=== PATIENT | male | born 1960 | race Caucasian/White ===

== ENCOUNTER 2021-08-11 14:05 | Inpatient (IN) | payer MEDICARE, MEDICAID ==
[~2021-08-11] VITALS: Ht 172.7 cm; Wt 81.8 kg
[~2021-08-11 14:05] MED LIST: AMLO10TA4 PO; ATOR-2 PO; CARB200T PO; CLOP75TA15 PO; LISI10TA27 PO
[2021-08-11 15:42] LABS: APTT 26 SECONDS (22-32)
[2021-08-11 15:46] LABS: ALANINE AMINOTRANSFERASE 38 U/L (12-78); ALBUMIN 3.6 G/DL (3.4-5.0); ALBUMIN/GLOBULIN RATIO 1.1 (1.1-1.5); ANION GAP 4 (8-16); ASPARTATE AMINO TRANSFERASE 38 U/L (10-37); BILIRUBIN,TOTAL 0.5 MG/DL (0.1-1.0); BLOOD UREA NITROGEN 56 MG/DL (7-18); BUN/CREATININE RATIO 16.7 (5.4-32.0); CALCIUM 8.5 MG/DL (8.5-10.1); CHLORIDE 74 MMOL/L (99-107); CREATININE 3.36 MG/DL (0.60-1.10); GLUCOSE 155 MG/DL (70-104); TOTAL CARBON DIOXIDE 33.6 MMOL/L (24-32); eGFR 19 ML/MIN
[2021-08-11 15:55] LABS: POTASSIUM 2.9 MMOL/L (3.5-5.1); SODIUM 112 MMOL/L (135-145)
[2021-08-11] MEDS ORDERED: normal saline 1000ml 1,000 ML IV ONE (16:00)
--- NOTE | 2021-08-11 16:00 | NUR ---
pt ambulated with steady gait to/from restroom twice. urine sample provided, sent to lab.
[2021-08-11 16:07] LABS: BASOPHILS % (AUTO) 0.2 % (0-1); EOSINOPHILS % (AUTO) 0.1 % (0-6); HEMATOCRIT 37.7 % (42.0-52.0); LYMPHOCYTES # (AUTO) 0.6 X10'3 (1.1-4.8); LYMPHOCYTES % (AUTO) 5.1 % (21-51); MEAN CORPUSCULAR HEMOGLOBIN 30.9 PG (27.0-31.0); MEAN CORPUSCULAR HGB CONC 34.6 g/dL (33.0-36.5); MEAN CORPUSCULAR VOLUME 89.5 FL (78-98); MEAN PLATELET VOLUME 6.7 FL (7.4-10.4); MONOCYTES # (AUTO) 0.8 X10'3 (0-0.9); MONOCYTES % (AUTO) 6.5 % (2-12); NEUTROPHILS # (AUTO) 10.4 X10'3 (1.8-7.7); NEUTROPHILS % (AUTO) 88.1 % (42-75); RED BLOOD COUNT 4.21 X10'6 (4.70-6.10); RED CELL DISTRIBUTION WIDTH 13.1 % (11.5-14.5); WHITE BLOOD COUNT 11.8 X10'3 (4.5-11.0)
[2021-08-11] MEDS ORDERED: ATOR40TA72 PO (16:11)
[2021-08-11] MEDS ORDERED: LISI40TA13 PO (16:11)
[2021-08-11] MEDS ORDERED: HYDR12.55 PO (16:11)
[2021-08-11] MEDS ORDERED: FLO0.4C PO (16:11)
[2021-08-11] MEDS ORDERED: CLOP75TA34 PO (16:11)
[2021-08-11] MEDS ORDERED: AMLO10TA13 PO (16:11)
[2021-08-11] MEDS ORDERED: CARB-212 PO (16:11)
[2021-08-11] MEDS ORDERED: FLUT1BLS16 PO (16:11)
[2021-08-11] MEDS ORDERED: CARB200T40 PO (16:11)
[2021-08-11] MEDS ORDERED: CHLO25TA10 PO (16:11)
[2021-08-11] MEDS ORDERED: PRED10TA23 PO (16:23)
[2021-08-11] MEDS ORDERED: dextrose 50%-water 50ml dispensing syringe IV PRN (16:30)
[2021-08-11] MEDS ORDERED: ondansetron/PF 4mg/2ml inj IV PRN (16:30)
[2021-08-11] MEDS ORDERED: potassium CL 10mEq/100ml bag 100 ML IV PRN (16:30)
[2021-08-11] MEDS ORDERED: HYDROcodone/acetaminophen 5mg/325mg tablet PO PRN (16:30)
[2021-08-11] MEDS ORDERED: haloperidol 5mg tablet PO PRN (16:30)
[2021-08-11] MEDS ORDERED: magnesium 2GM in 50ml NS 50 ML IV PRN (16:30)
[2021-08-11] MEDS ORDERED: morphine 2 MG/ML inj. syringe IV PRN (16:30)
[2021-08-11] MEDS ORDERED: LORazepam 2 mg/ml vial IV PRN (16:30)
[2021-08-11] MEDS ORDERED: acetaminophen 325mg tablet PO PRN ×2 (16:30)
[2021-08-11] MEDS ORDERED: haloperidol lactate 5mg/ml inj IM PRN (16:30)
[2021-08-11] MEDS ORDERED: magnesium Cl slow-release 64mg tablet PO PRN (16:30)
[2021-08-11] MEDS ORDERED: magnesium 4gm in 100ml NS 100 ML IV PRN (16:30)
[2021-08-11] MEDS: normal saline 1000ml 1,000 ML IV SCH ×2 (16:30→23:47)
[2021-08-11 16:34] LABS: CLARITY,URINE CLEAR (Clear); COLOR,URINE YELLOW (Yellow); GLUCOSE, URINE 500 mg/dl (Neg); KETONES,URINE NEGATIVE (Neg); LEUKOCYTE ESTERASE ,URINE NEGATIVE (Neg); NITRITES, URINE NEGATIVE (Neg); OCCULT BLOOD,URINE SMALL (Neg); PROTEIN,URINE NEGATIVE (Neg); UROBILINOGEN,URINE 0.2 E.U/dL (0.2-1.0)
--- NOTE | 2021-08-11 16:37 | NUR ---
dr. alicia at bedside.
[2021-08-11] MEDS: thiamine 100mg tablet PO SCH (16:43)
[2021-08-11] MEDS: folic acid 1mg tablet PO SCH (16:44)
[2021-08-11 16:48] LABS: UA COLLECTION TYPE CLN CATCH MIDSTREAM
[2021-08-11 17:21] LABS: BACTERIA,URINE NONE SEEN /HPF (Neg); RBC,URINE 0-2 /HPF (0-2); SQUAMOUS EPITHELIAL CELL,UR FEW /LPF (FEW); WBC,URINE 0-4 /HPF (0-4)
[2021-08-11 17:22] LABS: AMORPHOUS URATES 1+; HYALINE CASTS 0-3 /LPF (NEGATIVE); TRANSITIONAL EPI CELLS,URINE FEW /HPF
--- NOTE | 2021-08-11 20:14 | NUR ---
WHILE I WAS IN ANOTHER PT'S ROOM, I SAW PT AMBULATING THE JAY WITH IV POLE. PT WALKED WITH AN ERECT AND COORDINATED GAIT TO BATHROOM AND WALKED BACK TO ROOM.
--- NOTE | 2021-08-11 20:29 | NUR ---
Received report from DECLAN Swan RN about patient going to [facility] [place].
[2021-08-11] MEDS: tamsulosin 0.4mg capsule PO SCH (20:38)
[2021-08-11] MEDS: heparin, porcine 5000 units/ml vial SQ SCH (20:39)
[2021-08-11] MEDS: K and/or MAG REPLACEMENT MC SCH (20:44)
[2021-08-11] MEDS: potassium Cl 20 mEq SR tablet PO PRN (20:45)
--- NOTE | 2021-08-11 21:20 | NUR ---
Patient arrived to unit via wheelchair, ambulate to bed, standby assist. No acute distress noted. Call light within reach. Patient is deaf. Dx: c/o neck pain, dizziness since Wednesday. Red rash noted on chest, trunk, arms. Denies any pain or discomfort. Safety measures and comfort maintained. Will continue to monitor.
[2021-08-11 22:00] VITALS: BP 121/65
--- NOTE | 2021-08-11 22:57 | NUR ---
Brando Mcqueen 7688I with bradycardia noted HR between 35-55 with pulse pause 3 secs duration. Now HR 55. Patient denied pain or discomfort. was paged.
--- NOTE | 2021-08-11 23:23 | NUR ---
Dr Mendes made aware, new order to continue to monitor closely at this time, since patient is asymptomatic. Patient in bed watching TV. Will continue to monitor.
[2021-08-12] MEDS: potassium Cl 20 mEq SR tablet PO PRN ×4 (01:26→21:28)
[2021-08-12] MEDS: normal saline 1000ml 1,000 ML IV SCH ×3 (01:27→19:17)
[2021-08-12 02:00] VITALS: BP 94/50
[2021-08-12 06:00] VITALS: BP 95/53
[2021-08-12 06:20] LABS: ALANINE AMINOTRANSFERASE 36 U/L (12-78); ALBUMIN 3.4 G/DL (3.4-5.0); ALBUMIN/GLOBULIN RATIO 1.2 (1.1-1.5); ANION GAP 5 (8-16); ASPARTATE AMINO TRANSFERASE 36 U/L (10-37); BILIRUBIN,TOTAL 0.4 MG/DL (0.1-1.0); BLOOD UREA NITROGEN 46 MG/DL (7-18); BUN/CREATININE RATIO 24.5 (5.4-32.0); CALCIUM 8.8 MG/DL (8.5-10.1); CHLORIDE 83 MMOL/L (99-107); CREATININE 1.88 MG/DL (0.60-1.10); GLUCOSE 98 MG/DL (70-104); POTASSIUM 3.4 MMOL/L (3.5-5.1); SODIUM 121 MMOL/L (135-145); TOTAL CARBON DIOXIDE 33.1 MMOL/L (24-32); TOTAL PROTEIN 6.2 G/DL (6.4-8.2); eGFR 37 ML/MIN
--- NOTE | 2021-08-12 06:25 | NUR ---
Problems reprioritized. Patient report given, questions answered & plan of care reviewed with GUY Graves.
[2021-08-12 07:06] LABS: BASOPHILS % (AUTO) 0.4 % (0-1); EOSINOPHILS # (AUTO) 0.1 X10'3 (0-0.9); EOSINOPHILS % (AUTO) 0.6 % (0-6); HEMATOCRIT 36.5 % (42.0-52.0); HEMOGLOBIN 12.9 g/dl (14.0-17.9); LYMPHOCYTES # (AUTO) 1.5 X10'3 (1.1-4.8); LYMPHOCYTES % (AUTO) 15.5 % (21-51); MEAN CORPUSCULAR HEMOGLOBIN 31.7 PG (27.0-31.0); MEAN CORPUSCULAR HGB CONC 35.3 g/dL (33.0-36.5); MEAN CORPUSCULAR VOLUME 89.8 FL (78-98); MEAN PLATELET VOLUME 6.6 FL (7.4-10.4); MONOCYTES # (AUTO) 1.1 X10'3 (0-0.9); MONOCYTES % (AUTO) 11.7 % (2-12); NEUTROPHILS # (AUTO) 6.8 X10'3 (1.8-7.7); NEUTROPHILS % (AUTO) 71.8 % (42-75); PLATELET COUNT 338 X10'3 (140-440); RED BLOOD COUNT 4.07 X10'6 (4.70-6.10); WHITE BLOOD COUNT 9.5 X10'3 (4.5-11.0)
[2021-08-12] MEDS: folic acid 1mg tablet PO SCH (08:00)
[2021-08-12] MEDS ORDERED: non-formulary drug (Fluticasone/Umeclidin/Vilanter (Trelegy Ellipta 200-62.5-25) 1 PUFFS) PO SCH (08:00)
[2021-08-12] MEDS ORDERED: Fluticasone/Umeclidin/Vilanter (Trelegy Ellipta 200-62.5-25) PO SCH (08:00)
[2021-08-12] MEDS: thiamine 100mg tablet PO SCH (08:00)
[2021-08-12] MEDS: amLODIPine 5mg tablet PO SCH (08:00)
[2021-08-12] MEDS: atorvastatin 20mg tablet PO SCH (09:43)
[2021-08-12] MEDS: clopidogrel 75mg tablet PO SCH (09:43)
[2021-08-12] MEDS: tamsulosin 0.4mg capsule PO SCH ×2 (09:46→19:41)
[2021-08-12] MEDS: heparin, porcine 5000 units/ml vial SQ SCH ×2 (09:46→19:41)
[2021-08-12 11:00] VITALS: BP 96/56
[2021-08-12 15:00] VITALS: BP 102/66
--- NOTE | 2021-08-12 18:35 | NUR ---
Problems reprioritized. Patient report given, questions answered & plan of care reviewed with Maryann/RN.
--- NOTE | 2021-08-12 18:36 | NUR ---
Patient in room PCU 3024. I have received report from GUY Graves and had the opportunity to ask questions and assume patient care.
[2021-08-12 19:00] VITALS: BP 100/65
[2021-08-12] MEDS: K and/or MAG REPLACEMENT MC SCH (20:00)
[2021-08-12 23:00] VITALS: BP 124/86
[2021-08-13] MEDS: normal saline 1000ml 1,000 ML IV SCH ×3 (01:57→08:07)
[2021-08-13 03:00] VITALS: BP 100/65
[2021-08-13 06:00] VITALS: BP 116/61
--- NOTE | 2021-08-13 06:26 | NUR ---
Problems reprioritized. Patient report given, questions answered & plan of care reviewed with GUY Bray.
[2021-08-13 06:38] LABS: BASOPHILS % (AUTO) 0.4 % (0-1); EOSINOPHILS # (AUTO) 0.1 X10'3 (0-0.9); EOSINOPHILS % (AUTO) 1.1 % (0-6); HEMATOCRIT 37.3 % (42.0-52.0); HEMOGLOBIN 12.9 g/dl (14.0-17.9); LYMPHOCYTES # (AUTO) 1.4 X10'3 (1.1-4.8); LYMPHOCYTES % (AUTO) 19.7 % (21-51); MEAN CORPUSCULAR HEMOGLOBIN 31.5 PG (27.0-31.0); MEAN CORPUSCULAR HGB CONC 34.6 g/dL (33.0-36.5); MEAN PLATELET VOLUME 6.6 FL (7.4-10.4); MONOCYTES % (AUTO) 13.4 % (2-12); NEUTROPHILS # (AUTO) 4.7 X10'3 (1.8-7.7); NEUTROPHILS % (AUTO) 65.4 % (42-75); PLATELET COUNT 346 X10'3 (140-440); RED CELL DISTRIBUTION WIDTH 12.9 % (11.5-14.5); WHITE BLOOD COUNT 7.2 X10'3 (4.5-11.0)
--- NOTE | 2021-08-13 07:19 | NUR ---
Patient in room PCU 3024. I have received report from GUY Wolf and had the opportunity to ask questions and assume patient care.
[2021-08-13 07:40] LABS: ALANINE AMINOTRANSFERASE 36 U/L (12-78); ALBUMIN 3.4 G/DL (3.4-5.0); ALBUMIN/GLOBULIN RATIO 1.2 (1.1-1.5); ANION GAP 4 (8-16); ASPARTATE AMINO TRANSFERASE 30 U/L (10-37); BILIRUBIN,TOTAL 0.4 MG/DL (0.1-1.0); BLOOD UREA NITROGEN 24 MG/DL (7-18); BUN/CREATININE RATIO 27.3 (5.4-32.0); CALCIUM 8.8 MG/DL (8.5-10.1); CHLORIDE 92 MMOL/L (99-107); CREATININE 0.88 MG/DL (0.60-1.10); GLUCOSE 91 MG/DL (70-104); POTASSIUM 4.4 MMOL/L (3.5-5.1); SODIUM 130 MMOL/L (135-145); TOTAL CARBON DIOXIDE 33.7 MMOL/L (24-32); TOTAL PROTEIN 6.2 G/DL (6.4-8.2); eGFR 89 ML/MIN
[2021-08-13] MEDS: K and/or MAG REPLACEMENT MC SCH (08:00)
[2021-08-13] MEDS: atorvastatin 20mg tablet PO SCH (08:03)
[2021-08-13] MEDS: folic acid 1mg tablet PO SCH (08:03)
[2021-08-13] MEDS: clopidogrel 75mg tablet PO SCH (08:03)
[2021-08-13 08:04] VITALS: BP_SYST 116
[2021-08-13] MEDS: amLODIPine 5mg tablet PO SCH (08:04)
[2021-08-13] MEDS: tamsulosin 0.4mg capsule PO SCH (08:05)
[2021-08-13] MEDS: thiamine 100mg tablet PO SCH (08:05)
[2021-08-13] MEDS: heparin, porcine 5000 units/ml vial SQ SCH (08:06)
[2021-08-13] MEDS ORDERED: LORazepam 1 MG tablet PO PRN (16:30)
[2021-08-13] MEDS ORDERED: LORazepam 2 mg/ml vial IV PRN (16:30)
[2021-08-13] MEDS ORDERED: triamcinolone acetonide 0.5% cream 15gm TP SCH (20:00)
[2021-08-15] MEDS ORDERED: LORazepam 2 mg/ml vial IV PRN (16:30)
[2021-08-15] MEDS ORDERED: LORazepam 1 MG tablet PO PRN (16:30)
== END 2021-08-13 16:52 | disposition home or self-care (01) | DRG 640 ==
LOC: ER 14:05 → PCU 3S 16:35 → OBSVTOIN 16:35
PROVIDERS: ADMIT Internal Medicine; ATTEND Internal Medicine
DX: E87.1 Hypo-osmolality and hyponatremia (principal); N17.0 Acute kidney failure with tubular necrosis; F10.29 Alcohol dependence with unspecified alcohol-induced disorder; M54.2 Cervicalgia; L30.9 Dermatitis, unspecified; R21 Rash and other nonspecific skin eruption; E87.6 Hypokalemia; F17.200 Nicotine dependence, unspecified, uncomplicated; I10 Essential (primary) hypertension; I48.0 Paroxysmal atrial fibrillation; L98.9 Disorder of the skin and subcutaneous tissue, unspecified; Z79.02 Long term (current) use of antithrombotics/antiplatelets; Z79.899 Other long term (current) drug therapy; Z86.73 Personal history of transient ischemic attack (TIA), and cerebral infarction without residual deficits; Z88.8 Allergy status to other drugs, medicaments and biological substances
CPT/HCPCS: 36415; 70450; 71045; 80053; 81001; 85025; 85610; 85730; 86885; 86900; 86901; 87081; 93005; 96372; 99291; G0378; J1644; J7030

== ENCOUNTER 2021-08-21 12:50 | Emergency (ER) | payer MEDICARE, MEDICAID ==
[~2021-08-21] VITALS: Ht 172.7 cm; Wt 85.9 kg
[~2021-08-21 12:50] MED LIST changes: +AMLO10TA13 PO; -AMLO10TA4 PO; -ATOR-2 PO; +ATOR40TA72 PO; +CARB-212 PO; -CARB200T PO; +CARB200T40 PO; -CLOP75TA15 PO; +CLOP75TA34 PO; +FLO0.4C PO; +FLUT1BLS16 PO; -LISI10TA27 PO; +PRED10TA23 PO
[2021-08-21 13:15] VITALS: BP 132/69
[2021-08-21 14:29] LABS: BASOPHILS # (AUTO) 0.1 X10'3 (0-0.2); BASOPHILS % (AUTO) 0.6 % (0-1); EOSINOPHILS % (AUTO) 0.1 % (0-6); HEMATOCRIT 33.8 % (42.0-52.0); HEMOGLOBIN 11.3 g/dl (14.0-17.9); LYMPHOCYTES # (AUTO) 0.6 X10'3 (1.1-4.8); LYMPHOCYTES % (AUTO) 5.4 % (21-51); MEAN CORPUSCULAR HEMOGLOBIN 31.7 PG (27.0-31.0); MEAN CORPUSCULAR HGB CONC 33.5 g/dL (33.0-36.5); MEAN CORPUSCULAR VOLUME 94.6 FL (78-98); MONOCYTES # (AUTO) 0.8 X10'3 (0-0.9); MONOCYTES % (AUTO) 6.8 % (2-12); NEUTROPHILS # (AUTO) 10.4 X10'3 (1.8-7.7); NEUTROPHILS % (AUTO) 87.1 % (42-75); PLATELET COUNT 345 X10'3 (140-440); RED BLOOD COUNT 3.57 X10'6 (4.70-6.10); RED CELL DISTRIBUTION WIDTH 13.6 % (11.5-14.5)
[2021-08-21 14:35] LABS: ANION GAP 8 (8-16); BLOOD UREA NITROGEN 11 MG/DL (7-18); BUN/CREATININE RATIO 16.2 (5.4-32.0); CALCIUM 8.8 MG/DL (8.5-10.1); CHLORIDE 95 MMOL/L (99-107); CREATININE 0.68 MG/DL (0.60-1.10); GLUCOSE 109 MG/DL (70-104); POTASSIUM 4.9 MMOL/L (3.5-5.1); SODIUM 132 MMOL/L (135-145); TOTAL CARBON DIOXIDE 28.9 MMOL/L (24-32); eGFR > 90 ML/MIN
[2021-08-21 14:36] LABS: ALANINE AMINOTRANSFERASE 46 U/L (12-78); ALBUMIN 3.4 G/DL (3.4-5.0); ALBUMIN/GLOBULIN RATIO 1.2 (1.1-1.5); ALKALINE PHOSPHATASE 95 IU/L (46-116); ASPARTATE AMINO TRANSFERASE 19 U/L (10-37); BILIRUBIN,TOTAL 0.2 MG/DL (0.1-1.0); TOTAL PROTEIN 6.2 G/DL (6.4-8.2)
== END 2021-08-21 15:26 | disposition home or self-care (01) ==
LOC: ER 12:50
DX: R60.0 Localized edema (principal); E87.6 Hypokalemia; I10 Essential (primary) hypertension; Z86.73 Personal history of transient ischemic attack (TIA), and cerebral infarction without residual deficits; Z86.69 Personal history of other diseases of the nervous system and sense organs; Z98.890 Other specified postprocedural states; Z72.89 Other problems related to lifestyle; Z88.6 Allergy status to analgesic agent; Z79.899 Other long term (current) drug therapy
CPT/HCPCS: 36415; 80053; 83880; 85025; 99283

== ENCOUNTER 2022-08-24 15:50 | Inpatient (IN) | payer MEDICARE, MEDICAID ==
[~2022-08-24] VITALS: Ht 172.7 cm; Wt 86.7 kg
[~2022-08-24 15:50] MED LIST changes: -AMLO10TA13 PO; +APIX5TAB3 PO; +ASPI81TA53 PO; +CARV6.253 PO; +FOLI1TAB27 PO; +LOSA100T57 PO; +NALT50TA PO; +NITR0.4T51 SL; -PRED10TA23 PO; +thiamine tablet PO
[2022-08-24 16:14] LABS: BASOPHILS # (AUTO) 0.1 X10'3 (0-0.2); BASOPHILS % (AUTO) 1.1 % (0-1); EOSINOPHILS % (AUTO) 0.6 % (0-6); HEMATOCRIT 43.4 % (42.0-52.0); HEMOGLOBIN 14.5 g/dl (14.0-17.9); LYMPHOCYTES # (AUTO) 1.5 X10'3 (1.1-4.8); LYMPHOCYTES % (AUTO) 23.5 % (21-51); MEAN CORPUSCULAR HEMOGLOBIN 31.1 PG (27.0-31.0); MEAN CORPUSCULAR HGB CONC 33.3 g/dL (33.0-36.5); MEAN CORPUSCULAR VOLUME 93.2 FL (78-98); MEAN PLATELET VOLUME 6.3 FL (7.4-10.4); MONOCYTES # (AUTO) 0.7 X10'3 (0-0.9); MONOCYTES % (AUTO) 11.4 % (2-12); NEUTROPHILS % (AUTO) 63.4 % (42-75); PLATELET COUNT 288 X10'3 (140-440); RED BLOOD COUNT 4.65 X10'6 (4.70-6.10); RED CELL DISTRIBUTION WIDTH 13.9 % (11.5-14.5); WHITE BLOOD COUNT 6.3 X10'3 (4.5-11.0)
[2022-08-24 16:39] LABS: ALANINE AMINOTRANSFERASE 40 U/L (12-78); ALBUMIN 3.6 G/DL (3.4-5.0); ALBUMIN/GLOBULIN RATIO 1.1 (1.1-1.5); ALKALINE PHOSPHATASE 124 IU/L (46-116); ANION GAP 5 (8-16); ASPARTATE AMINO TRANSFERASE 28 U/L (10-37); BILIRUBIN,TOTAL 0.3 MG/DL (0.1-1.0); BLOOD UREA NITROGEN 24 MG/DL (7-18); CALCIUM 9.3 MG/DL (8.5-10.1); CHLORIDE 102 MMOL/L (99-107); GLUCOSE 91 MG/DL (70-104); POTASSIUM 4.3 MMOL/L (3.5-5.1); SODIUM 136 MMOL/L (135-145); TOTAL CARBON DIOXIDE 28.6 MMOL/L (24-32); eGFR > 90 ML/MIN
[2022-08-24] MEDS ORDERED: nitroGLYCERIN 0.4mg SUBLingual tab SL PRN (18:05)
[2022-08-24] MEDS ORDERED: aspirin 81mg tab.chew PO ONE (18:05)
[2022-08-24 18:54] LABS: ANION GAP 4 (8-16); CHLORIDE 102 MMOL/L (99-107); POTASSIUM 4.3 MMOL/L (3.5-5.1); SODIUM 136 MMOL/L (135-145); TOTAL CARBON DIOXIDE 30.2 MMOL/L (24-32)
--- NOTE | 2022-08-24 19:38 | NUR ---
PT AMBULATED TO AND FROM BATHROOM WITH NO VISUAL SIGNS OF DISCOMFORT NOR COMPLAINTS
[2022-08-24] MEDS ORDERED: ondansetron/PF 4mg/2ml inj IV PRN (21:25)
[2022-08-24] MEDS ORDERED: magnesium hydroxide 30ml (MOM) UD suspension PO PRN (21:25)
[2022-08-24] MEDS ORDERED: potassium Cl 40MEQ/1/2NS 520ml 520 ML IV PRN (21:25)
[2022-08-24] MEDS ORDERED: mag hydrox/Alum hydrox/simeth 30ml oral suspension PO PRN (21:25)
[2022-08-24] MEDS ORDERED: potassium Cl 20 mEq SR tablet PO PRN ×2 (21:25)
[2022-08-24] MEDS ORDERED: ipratropium/albuterol 3ml nebule NEB PRN (21:25)
[2022-08-24] MEDS ORDERED: albuterol 2.5 MG/3 ML nebule NEB PRN (21:25)
[2022-08-24] MEDS ORDERED: magnesium 4gm in 100ml NS 100 ML IV PRN (21:25)
[2022-08-24] MEDS ORDERED: POTA-82 PO (22:04)
[2022-08-24] MEDS ORDERED: IPRA3AMP31 (22:04)
[2022-08-24] MEDS ORDERED: FURO40TA4 PO (22:04)
[2022-08-24] MEDS ORDERED: EMPA10TA PO (22:04)
[2022-08-24] MEDS ORDERED: SACU1TAB4 PO (22:04)
[2022-08-25] VITALS (19 sets, daily range): BP systolic 97–163; BP diastolic 50–88
[2022-08-25] MEDS: carBAMazepine 100mg chewable tablet PO SCH ×3 (00:57→20:26)
[2022-08-25] MEDS: apixaban 5mg tablet PO SCH ×2 (00:58→08:36)
[2022-08-25] MEDS: carvedilol 6.25mg tablet PO SCH ×3 (00:58→19:31)
[2022-08-25] MEDS: tamsulosin 0.4mg capsule PO SCH ×3 (01:08→19:30)
[2022-08-25] MEDS: furosemide 40mg tablet PO SCH ×3 (01:08→19:31)
[2022-08-25] MEDS: sacubitril/valsartan 49mg-51mg tablet PO SCH ×3 (01:09→19:31)
[2022-08-25 04:34] LABS: BASOPHILS % (AUTO) 0.7 % (0-1); EOSINOPHILS # (AUTO) 0.1 X10'3 (0-0.9); EOSINOPHILS % (AUTO) 0.8 % (0-6); HEMATOCRIT 46.2 % (42.0-52.0); HEMOGLOBIN 15.7 g/dl (14.0-17.9); LYMPHOCYTES # (AUTO) 1.5 X10'3 (1.1-4.8); LYMPHOCYTES % (AUTO) 23.1 % (21-51); MEAN CORPUSCULAR HEMOGLOBIN 31.4 PG (27.0-31.0); MEAN CORPUSCULAR HGB CONC 34.1 g/dL (33.0-36.5); MEAN PLATELET VOLUME 6.3 FL (7.4-10.4); MONOCYTES # (AUTO) 0.7 X10'3 (0-0.9); MONOCYTES % (AUTO) 11.1 % (2-12); NEUTROPHILS # (AUTO) 4.2 X10'3 (1.8-7.7); NEUTROPHILS % (AUTO) 64.3 % (42-75); PLATELET COUNT 253 X10'3 (140-440); RED BLOOD COUNT 5.02 X10'6 (4.70-6.10); RED CELL DISTRIBUTION WIDTH 13.5 % (11.5-14.5); WHITE BLOOD COUNT 6.5 X10'3 (4.5-11.0)
[2022-08-25 04:46] LABS: ALANINE AMINOTRANSFERASE 42 U/L (12-78); ALBUMIN 3.7 G/DL (3.4-5.0); ALKALINE PHOSPHATASE 131 IU/L (46-116); ANION GAP 4 (8-16); ASPARTATE AMINO TRANSFERASE 31 U/L (10-37); BILIRUBIN,TOTAL 0.5 MG/DL (0.1-1.0); BLOOD UREA NITROGEN 20 MG/DL (7-18); BUN/CREATININE RATIO 27.8 (5.4-32.0); CALCIUM 9.3 MG/DL (8.5-10.1); CHLORIDE 101 MMOL/L (99-107); CREATININE 0.72 MG/DL (0.60-1.10); GLUCOSE 105 MG/DL (70-104); MAGNESIUM 2.4 MG/DL (1.5-2.4); POTASSIUM 3.8 MMOL/L (3.5-5.1); SODIUM 135 MMOL/L (135-145); TOTAL CARBON DIOXIDE 30.2 MMOL/L (24-32); TOTAL PROTEIN 7.3 G/DL (6.4-8.2); eGFR > 90 ML/MIN
[2022-08-25] MEDS: ipratropium/albuterol 3ml nebule NEB SCH ×4 (07:28→19:57)
--- NOTE | 2022-08-25 07:31 | NUR ---
Seen patient, no signs of distress, comfortable and denies pain.
[2022-08-25] MEDS: K and/or MAG REPLACEMENT MC SCH ×2 (08:00→19:08)
[2022-08-25] MEDS ORDERED: atorvastatin 20mg tablet PO SCH (08:00)
[2022-08-25] MEDS: docusate sod 100mg capsule PO SCH ×2 (08:00→19:26)
[2022-08-25] MEDS: folic acid 1mg tablet PO SCH (08:36)
[2022-08-25] MEDS: acetaminophen 325mg tablet PO PRN ×2 (08:48→17:11)
[2022-08-25] MEDS: EMPAGLIFLOZIN 10 MG TABLET PO SCH (08:57)
--- NOTE | 2022-08-25 10:03 | NUR ---
Dr. Kelley spoke to the patient via a bedside video historic interpreter
[2022-08-25] MEDS ORDERED: morphine 2 MG/ML inj. syringe IV PRN (10:05)
[2022-08-25] MEDS ORDERED: nitroGLYCERIN-Tridil 50MG/D5W 250 ML IV ONE (12:32)
[2022-08-25] MEDS ORDERED: verapamil 2.5 mg/ml inj IV ONE (12:32)
[2022-08-25] MEDS ORDERED: heparin 1,000unit/ml 10ml vial 10 ML ONE (12:32)
[2022-08-25] MEDS ORDERED: fentaNYL/PF 50MCG/1 ML 2ML syringe ONE (12:32)
[2022-08-25] MEDS ORDERED: iohexol 350MG/ML 100ml bottle IV ONE (12:32)
[2022-08-25] MEDS ORDERED: LIDOcaine 1% 30ml preserv. free vial ONE (12:32)
[2022-08-25] MEDS ORDERED: midazolam 1 mg/ML 2ml injection ONE (12:32)
[2022-08-25] MEDS ORDERED: ondansetron 4mg rapidly disintigrating tab PO PRN (14:25)
[2022-08-25] MEDS ORDERED: insulin glargine (Lantus) pen - multi-dose SQ PRN (14:25)
[2022-08-25] MEDS ORDERED: HYDROcodone/acetaminophen 5mg/325mg tablet PO PRN (14:25)
[2022-08-25] MEDS ORDERED: vancomycin/NS 1 GM ADD-VANTAGE 250 ML IV ONE (14:25)
[2022-08-25] MEDS ORDERED: PERFLUTREN PROTEIN-A MICROSPHR (Optison) 0.22 MG/ML 3ML VIAL IV ONE (14:35)
[2022-08-25] MEDS ORDERED: proCHLORperazine 10 MG/2 ml inj IV PRN (14:50)
[2022-08-25] MEDS ORDERED: ondansetron/PF 4mg/2ml inj IV PRN (14:50)
[2022-08-25] MEDS ORDERED: OXAZEpam 15mg capsule PO PRN (14:50)
[2022-08-25 15:29] LABS: APTT 91 SECONDS (22-32)
--- NOTE | 2022-08-25 15:34 | NUR ---
Page Sent promotional table spacer PAGER ID: [phone] MESSAGE: [id number]. Richar . Critical PTT 91. Pt needs CABG. Brittany @[phone] (62 character message out of a maximum of 240) CLOSE [X] SEND ANOTHER PAGE Thank you for visiting [facility] promotional table spacer promotional table spacer
[2022-08-25 17:18] LABS: ABG BASE EXCESS -2.7 mmol/L (-2.0-2.0); ABG HCO3 20.6 mmol/L (22.0-26.0); ABG OXYGEN SATURATION 91.9 % (94-97); ABG PO2 (T) 68.3 mmHg (75.0-100.0); ALLEN'S TEST POSITIVE; FCOHb 0.3 % (0.0-3.9); FO2Hb 91.6 % (94-97); TOTAL HEMOGLOBIN 15.4 G/dl (14.0-17.9)
--- NOTE | 2022-08-25 18:28 | NUR ---
Problems reprioritized. Patient report given, questions answered & plan of care reviewed with Get TOVAR. Patient resting in bed in no acute distress. Cushion Builder at bedside.
[2022-08-26] VITALS: BP 102/66
[2022-08-26 02:32] VITALS: BP 111/63
[2022-08-26] MEDS ORDERED: Insulin Reg/NS 100units/100mL 100 ML IV SCH (05:30)
[2022-08-26] MEDS ORDERED: dextrose 50%-water 50ml dispensing syringe IV PRN (05:30)
--- NOTE | 2022-08-26 06:00 | NUR ---
Patient in room PCU 3012. I have received report from Get TOVAR and had the opportunity to ask questions and assume patient care.
[2022-08-26 06:51] LABS: BASOPHILS % (AUTO) 0.3 % (0-1); EOSINOPHILS % (AUTO) 0.5 % (0-6); HEMATOCRIT 44.7 % (42.0-52.0); HEMOGLOBIN 15.4 g/dl (14.0-17.9); LYMPHOCYTES # (AUTO) 1.1 X10'3 (1.1-4.8); LYMPHOCYTES % (AUTO) 16.9 % (21-51); MEAN CORPUSCULAR HEMOGLOBIN 31.8 PG (27.0-31.0); MEAN CORPUSCULAR HGB CONC 34.4 g/dL (33.0-36.5); MEAN CORPUSCULAR VOLUME 92.4 FL (78-98); MEAN PLATELET VOLUME 6.4 FL (7.4-10.4); MONOCYTES # (AUTO) 0.6 X10'3 (0-0.9); MONOCYTES % (AUTO) 9.4 % (2-12); NEUTROPHILS # (AUTO) 4.9 X10'3 (1.8-7.7); NEUTROPHILS % (AUTO) 72.9 % (42-75); PLATELET COUNT 273 X10'3 (140-440); RED BLOOD COUNT 4.85 X10'6 (4.70-6.10); RED CELL DISTRIBUTION WIDTH 13.5 % (11.5-14.5); WHITE BLOOD COUNT 6.7 X10'3 (4.5-11.0)
[2022-08-26 07:09] LABS: ALANINE AMINOTRANSFERASE 39 U/L (12-78); ALBUMIN 3.6 G/DL (3.4-5.0); ALKALINE PHOSPHATASE 127 IU/L (46-116); ANION GAP 3 (8-16); ASPARTATE AMINO TRANSFERASE 26 U/L (10-37); BILIRUBIN,TOTAL 0.4 MG/DL (0.1-1.0); BLOOD UREA NITROGEN 21 MG/DL (7-18); BUN/CREATININE RATIO 22.6 (5.4-32.0); CALCIUM 9.5 MG/DL (8.5-10.1); CHLORIDE 100 MMOL/L (99-107); CREATININE 0.93 MG/DL (0.60-1.10); GLUCOSE 101 MG/DL (70-104); MAGNESIUM 2.4 MG/DL (1.5-2.4); POTASSIUM 4.4 MMOL/L (3.5-5.1); SODIUM 135 MMOL/L (135-145); TOTAL CARBON DIOXIDE 32.2 MMOL/L (24-32); TOTAL PROTEIN 7.1 G/DL (6.4-8.2); eGFR 83 ML/MIN
[2022-08-26] MEDS: tamsulosin 0.4mg capsule PO SCH ×2 (07:18→19:10)
[2022-08-26] MEDS: folic acid 1mg tablet PO SCH (07:18)
[2022-08-26] MEDS: EMPAGLIFLOZIN 10 MG TABLET PO SCH (07:19)
[2022-08-26] MEDS: carvedilol 6.25mg tablet PO SCH ×2 (07:19→19:11)
[2022-08-26] MEDS: furosemide 40mg tablet PO SCH ×2 (07:19→19:11)
[2022-08-26] MEDS: carBAMazepine 100mg chewable tablet PO SCH ×2 (07:20→20:54)
[2022-08-26] MEDS: sacubitril/valsartan 49mg-51mg tablet PO SCH ×2 (07:20→19:10)
[2022-08-26] MEDS: ipratropium/albuterol 3ml nebule NEB SCH ×4 (07:31→19:46)
[2022-08-26] MEDS ORDERED: cefazolin 2gm/D5W 100mL 100 ML IV ONE (08:00)
[2022-08-26] MEDS ORDERED: gabapentin 400mg capsule PO ONE (08:00)
[2022-08-26] MEDS: docusate sod 100mg capsule PO SCH ×2 (08:00→19:10)
[2022-08-26] MEDS: K and/or MAG REPLACEMENT MC SCH ×2 (08:00→19:01)
[2022-08-26] MEDS ORDERED: vancomycin 1,500 MG in NS 300ml IV soln IV ONE (08:00)
[2022-08-26] MEDS ORDERED: MESSAGE TO NURSING PO ONE ×5 (10:00→11:00)
[2022-08-26] MEDS: acetaminophen 325mg tablet PO PRN (10:24)
[2022-08-26] MEDS ORDERED: MESSAGE TO PHARMACY IJ ONE (11:00)
[2022-08-26 18:00] VITALS: BP 115/83
--- NOTE | 2022-08-26 18:09 | NUR ---
Problems reprioritized. Patient report given, questions answered & plan of care reviewed with Get TOVAR, patient stable at transfer of care.
[2022-08-26] MEDS: atorvastatin 20mg tablet PO SCH (20:54)
[2022-08-26 22:52] VITALS: BP 127/81
[2022-08-27 02:06] VITALS: BP 112/62
[2022-08-27 06:40] LABS: BASOPHILS # (AUTO) 0.1 X10'3 (0-0.2); BASOPHILS % (AUTO) 0.7 % (0-1); EOSINOPHILS # (AUTO) 0.1 X10'3 (0-0.9); EOSINOPHILS % (AUTO) 0.6 % (0-6); HEMATOCRIT 44.8 % (42.0-52.0); HEMOGLOBIN 15.4 g/dl (14.0-17.9); LYMPHOCYTES # (AUTO) 1.4 X10'3 (1.1-4.8); LYMPHOCYTES % (AUTO) 13.7 % (21-51); MEAN CORPUSCULAR HEMOGLOBIN 31.7 PG (27.0-31.0); MEAN CORPUSCULAR HGB CONC 34.4 g/dL (33.0-36.5); MEAN PLATELET VOLUME 6.6 FL (7.4-10.4); MONOCYTES # (AUTO) 0.9 X10'3 (0-0.9); MONOCYTES % (AUTO) 8.6 % (2-12); NEUTROPHILS # (AUTO) 7.7 X10'3 (1.8-7.7); NEUTROPHILS % (AUTO) 76.4 % (42-75); PLATELET COUNT 279 X10'3 (140-440); RED BLOOD COUNT 4.87 X10'6 (4.70-6.10); RED CELL DISTRIBUTION WIDTH 13.6 % (11.5-14.5); WHITE BLOOD COUNT 10.1 X10'3 (4.5-11.0)
[2022-08-27 07:12] LABS: ALANINE AMINOTRANSFERASE 40 U/L (12-78); ALBUMIN 3.9 G/DL (3.4-5.0); ALBUMIN/GLOBULIN RATIO 1.1 (1.1-1.5); ALKALINE PHOSPHATASE 133 IU/L (46-116); ANION GAP 5 (8-16); ASPARTATE AMINO TRANSFERASE 34 U/L (10-37); BILIRUBIN,TOTAL 0.5 MG/DL (0.1-1.0); BLOOD UREA NITROGEN 23 MG/DL (7-18); BUN/CREATININE RATIO 30.7 (5.4-32.0); CALCIUM 8.8 MG/DL (8.5-10.1); CHLORIDE 93 MMOL/L (99-107); CREATININE 0.75 MG/DL (0.60-1.10); GLUCOSE 101 MG/DL (70-104); POTASSIUM 4.1 MMOL/L (3.5-5.1); SODIUM 131 MMOL/L (135-145); TOTAL CARBON DIOXIDE 33.2 MMOL/L (24-32); TOTAL PROTEIN 7.6 G/DL (6.4-8.2); eGFR > 90 ML/MIN
[2022-08-27] MEDS: ipratropium/albuterol 3ml nebule NEB SCH ×4 (07:59→19:53)
[2022-08-27] MEDS: K and/or MAG REPLACEMENT MC SCH ×2 (08:00→19:03)
[2022-08-27] MEDS: docusate sod 100mg capsule PO SCH ×2 (08:50→19:38)
[2022-08-27] MEDS: tamsulosin 0.4mg capsule PO SCH ×2 (08:50→19:38)
[2022-08-27] MEDS: furosemide 40mg tablet PO SCH ×2 (08:51→19:39)
[2022-08-27] MEDS: folic acid 1mg tablet PO SCH (08:51)
[2022-08-27] MEDS: carBAMazepine 100mg chewable tablet PO SCH ×2 (08:51→20:16)
[2022-08-27] MEDS: carvedilol 6.25mg tablet PO SCH ×2 (08:51→19:39)
[2022-08-27] MEDS: EMPAGLIFLOZIN 10 MG TABLET PO SCH (08:51)
[2022-08-27] MEDS: acetaminophen 325mg tablet PO PRN (08:54)
[2022-08-27] MEDS: sacubitril/valsartan 49mg-51mg tablet PO SCH ×2 (09:00→19:38)
[2022-08-27] MEDS: MESSAGE TO PHARMACY IJ SCH (09:20)
[2022-08-27] MEDS ORDERED: CLOP75TA34 PO (15:54)
[2022-08-27] MEDS: Insulin Reg/NS 100units/100mL 100 ML IV SCH ×2 (17:20→18:13)
[2022-08-27 18:00] VITALS: BP 116/67
--- NOTE | 2022-08-27 18:37 | NUR ---
Problems reprioritized. Patient report given, questions answered & plan of care reviewed with Get TOVAR, patient stable at transfer of care.
[2022-08-27] MEDS: enoxaparin 30mg/0.3ml syringe SUBCUT SCH (19:39)
[2022-08-27] MEDS: enoxaparin 60mg/0.6ml syringe SUBCUT SCH (19:40)
[2022-08-27] MEDS: atorvastatin 20mg tablet PO SCH (20:16)
[2022-08-27] MEDS: HYDROcodone/acetaminophen 5mg/325mg tablet PO PRN (20:21)
[2022-08-27 22:11] VITALS: BP 102/54
[2022-08-28] VITALS (7 sets, daily range): BP systolic 106–159; BP diastolic 67–95
--- NOTE | 2022-08-28 06:22 | NUR ---
Patient in room PCU 3012a. I have received report from Get TOVAR and had the opportunity to ask questions and assume patient care. Pt is laying high fowlers in bed. Pt has nocturnal CPAP on. No s/s of distress, no s/s of pain at this time. BLL, call light within reach, frequently used items in reach, frequent rounding, business resiliency manager socks on. Will continue to monitor.
[2022-08-28] MEDS: sacubitril/valsartan 49mg-51mg tablet PO SCH ×2 (07:22→19:25)
[2022-08-28] MEDS: tamsulosin 0.4mg capsule PO SCH ×2 (07:22→19:26)
[2022-08-28] MEDS: carvedilol 6.25mg tablet PO SCH ×2 (07:22→19:26)
[2022-08-28] MEDS: folic acid 1mg tablet PO SCH (07:22)
[2022-08-28] MEDS: docusate sod 100mg capsule PO SCH ×2 (07:22→19:26)
[2022-08-28] MEDS: carBAMazepine 100mg chewable tablet PO SCH ×2 (07:23→20:17)
[2022-08-28] MEDS: enoxaparin 30mg/0.3ml syringe SUBCUT SCH ×2 (07:23→19:26)
[2022-08-28] MEDS: furosemide 40mg tablet PO SCH ×2 (07:23→19:25)
[2022-08-28] MEDS: enoxaparin 60mg/0.6ml syringe SUBCUT SCH ×2 (07:24→19:26)
[2022-08-28] MEDS: HYDROcodone/acetaminophen 5mg/325mg tablet PO PRN ×3 (07:26→19:26)
[2022-08-28] MEDS: K and/or MAG REPLACEMENT MC SCH ×2 (07:28→20:10)
[2022-08-28] MEDS: EMPAGLIFLOZIN 10 MG TABLET PO SCH (07:47)
[2022-08-28 08:00] LABS: BASOPHILS # (AUTO) 0.1 X10'3 (0-0.2); BASOPHILS % (AUTO) 1.1 % (0-1); EOSINOPHILS # (AUTO) 0.1 X10'3 (0-0.9); EOSINOPHILS % (AUTO) 0.9 % (0-6); HEMATOCRIT 43.5 % (42.0-52.0); HEMOGLOBIN 14.7 g/dl (14.0-17.9); LYMPHOCYTES # (AUTO) 1.3 X10'3 (1.1-4.8); MEAN CORPUSCULAR HEMOGLOBIN 31.4 PG (27.0-31.0); MEAN CORPUSCULAR HGB CONC 33.9 g/dL (33.0-36.5); MEAN CORPUSCULAR VOLUME 92.5 FL (78-98); MEAN PLATELET VOLUME 7.2 FL (7.4-10.4); MONOCYTES # (AUTO) 0.7 X10'3 (0-0.9); MONOCYTES % (AUTO) 9.7 % (2-12); NEUTROPHILS # (AUTO) 4.6 X10'3 (1.8-7.7); NEUTROPHILS % (AUTO) 68.3 % (42-75); PLATELET COUNT 276 X10'3 (140-440); RED CELL DISTRIBUTION WIDTH 13.7 % (11.5-14.5); WHITE BLOOD COUNT 6.7 X10'3 (4.5-11.0)
[2022-08-28] MEDS: ipratropium/albuterol 3ml nebule NEB SCH ×3 (08:20→19:30)
[2022-08-28 08:32] LABS: ALANINE AMINOTRANSFERASE 37 U/L (12-78); ALBUMIN 3.7 G/DL (3.4-5.0); ALKALINE PHOSPHATASE 127 IU/L (46-116); ANION GAP 5 (8-16); ASPARTATE AMINO TRANSFERASE 31 U/L (10-37); BILIRUBIN,TOTAL 0.5 MG/DL (0.1-1.0); BLOOD UREA NITROGEN 24 MG/DL (7-18); BUN/CREATININE RATIO 34.3 (5.4-32.0); CALCIUM 9.1 MG/DL (8.5-10.1); CHLORIDE 94 MMOL/L (99-107); GLUCOSE 82 MG/DL (70-104); MAGNESIUM 2.2 MG/DL (1.5-2.4); POTASSIUM 3.9 MMOL/L (3.5-5.1); SODIUM 132 MMOL/L (135-145); TOTAL CARBON DIOXIDE 33.4 MMOL/L (24-32); TOTAL PROTEIN 7.3 G/DL (6.4-8.2); eGFR > 90 ML/MIN
[2022-08-28] MEDS: MESSAGE TO PHARMACY IJ SCH (09:20)
--- NOTE | 2022-08-28 10:47 | NUR ---
Initial: Pt admit for CP with a recent positive cardiac stress test, found to have severe three-vessel coronary disease with significant proximal LAD stenosis and very severe mid right coronary stenosis per MD note. Pt pending CABG per EMR. Currently on a heart healthy diet and eating well, documented with 100% PO intake throughout LOS meeting estimated nutrient needs. LBM 3/2 per I&O. No nutrition intervention implemented at this time. Will continue to follow. Recommendations: 1) Continue heart healthy diet 2) Monitor need for additional protein for satiety 3) Routine bowel care 4) Daily scaled weights per rx Addendum: 08/28/22 at [address] Amended: Links added.
[2022-08-28] MEDS ORDERED: ringers solution, lacted 1,000 ML IV ONE (13:25)
--- NOTE | 2022-08-28 18:12 | NUR ---
Problems reprioritized. Patient report given, questions answered & plan of care reviewed with Get TOVAR.
[2022-08-28] MEDS ORDERED: diphenhydrAMINE 25mg capsule PO PRN (19:10)
[2022-08-28] MEDS: diphenhydrAMINE 25mg capsule PO PRN (20:16)
[2022-08-28] MEDS: atorvastatin 20mg tablet PO SCH (20:17)
[2022-08-28] MEDS: acetaminophen 325mg tablet PO PRN (23:17)
[2022-08-29] MEDS: Insulin Reg/NS 100units/100mL 100 ML IV SCH (02:16)
[2022-08-29 02:49] VITALS: BP 120/84
[2022-08-29 06:42] LABS: BASOPHILS % (AUTO) 0.6 % (0-1); EOSINOPHILS # (AUTO) 0.1 X10'3 (0-0.9); EOSINOPHILS % (AUTO) 1.4 % (0-6); HEMATOCRIT 40.9 % (42.0-52.0); HEMOGLOBIN 13.7 g/dl (14.0-17.9); LYMPHOCYTES # (AUTO) 1.3 X10'3 (1.1-4.8); LYMPHOCYTES % (AUTO) 22.5 % (21-51); MEAN CORPUSCULAR HEMOGLOBIN 31.1 PG (27.0-31.0); MEAN CORPUSCULAR HGB CONC 33.5 g/dL (33.0-36.5); MEAN CORPUSCULAR VOLUME 92.8 FL (78-98); MONOCYTES # (AUTO) 0.8 X10'3 (0-0.9); MONOCYTES % (AUTO) 13.5 % (2-12); NEUTROPHILS # (AUTO) 3.7 X10'3 (1.8-7.7); PLATELET COUNT 266 X10'3 (140-440); RED BLOOD COUNT 4.41 X10'6 (4.70-6.10); RED CELL DISTRIBUTION WIDTH 13.5 % (11.5-14.5)
[2022-08-29 06:59] LABS: ALANINE AMINOTRANSFERASE 29 U/L (12-78); ALBUMIN 3.4 G/DL (3.4-5.0); ALKALINE PHOSPHATASE 116 IU/L (46-116); ANION GAP 4 (8-16); ASPARTATE AMINO TRANSFERASE 26 U/L (10-37); BILIRUBIN,TOTAL 0.4 MG/DL (0.1-1.0); BLOOD UREA NITROGEN 23 MG/DL (7-18); BUN/CREATININE RATIO 29.5 (5.4-32.0); CHLORIDE 96 MMOL/L (99-107); CREATININE 0.78 MG/DL (0.60-1.10); GLUCOSE 79 MG/DL (70-104); MAGNESIUM 2.3 MG/DL (1.5-2.4); POTASSIUM 4.2 MMOL/L (3.5-5.1); SODIUM 132 MMOL/L (135-145); TOTAL CARBON DIOXIDE 32.2 MMOL/L (24-32); TOTAL PROTEIN 6.7 G/DL (6.4-8.2); eGFR > 90 ML/MIN
[2022-08-29 07:00] VITALS: BP 138/84
[2022-08-29] MEDS: tamsulosin 0.4mg capsule PO SCH ×2 (07:38→20:17)
[2022-08-29] MEDS: HYDROcodone/acetaminophen 5mg/325mg tablet PO PRN ×2 (07:41→13:51)
[2022-08-29] MEDS: carBAMazepine 100mg chewable tablet PO SCH ×2 (07:41→21:00)
[2022-08-29] MEDS: carvedilol 6.25mg tablet PO SCH ×2 (07:42→20:19)
[2022-08-29] MEDS: folic acid 1mg tablet PO SCH (07:42)
[2022-08-29] MEDS: furosemide 40mg tablet PO SCH ×2 (07:42→20:20)
[2022-08-29] MEDS: docusate sod 100mg capsule PO SCH ×2 (07:42→20:17)
[2022-08-29] MEDS: EMPAGLIFLOZIN 10 MG TABLET PO SCH (07:42)
[2022-08-29] MEDS: enoxaparin 30mg/0.3ml syringe SUBCUT SCH ×2 (07:42→20:32)
[2022-08-29] MEDS: enoxaparin 60mg/0.6ml syringe SUBCUT SCH ×2 (08:00→20:33)
[2022-08-29] MEDS: K and/or MAG REPLACEMENT MC SCH ×2 (08:00→20:00)
[2022-08-29] MEDS: sacubitril/valsartan 49mg-51mg tablet PO SCH ×2 (08:00→20:00)
[2022-08-29] MEDS: ipratropium/albuterol 3ml nebule NEB SCH ×4 (08:43→19:36)
[2022-08-29] MEDS: MESSAGE TO PHARMACY IJ SCH (09:20)
[2022-08-29 11:00] VITALS: BP 128/58
--- NOTE | 2022-08-29 14:47 | NUR ---
Per information engineer: patient reports he is having headaches mainly on the right side that have been persistent since June 2022. He reports that [place] helps but he is concerned with having headaches upon discharge.
[2022-08-29 15:00] VITALS: BP 146/85
[2022-08-29 18:00] VITALS: BP 152/81
--- NOTE | 2022-08-29 18:42 | NUR ---
Patient in room PCU 3012. I have received report from MYRON QUACH and had the opportunity to ask questions and assume patient care. Addendum: 08/29/22 at 1844 by Sarai Walker RN AMEND- RECIEVED REPORT FROM ZANE TOVAR
[2022-08-29] MEDS: acetaminophen 325mg tablet PO PRN (20:14)
[2022-08-29] MEDS: atorvastatin 20mg tablet PO SCH (20:19)
[2022-08-29 22:00] VITALS: BP 150/79
[2022-08-29] MEDS: HYDROcodone/acetaminophen 10/325mg tab PO PRN (22:18)
[2022-08-30] MEDS: diphenhydrAMINE 25mg capsule PO PRN (00:36)
[2022-08-30 02:00] VITALS: BP 143/84
[2022-08-30] MEDS: HYDROcodone/acetaminophen 10/325mg tab PO PRN ×4 (03:42→21:32)
[2022-08-30 06:00] VITALS: BP 140/94
--- NOTE | 2022-08-30 06:25 | NUR ---
Problems reprioritized. Patient report given, questions answered & plan of care reviewed with DANIEL Cotter
--- NOTE | 2022-08-30 06:32 | NUR ---
Patient in room PCU 3012A. I have received report from Sarai TOVAR and had the opportunity to ask questions and assume patient care. Pt is sitting up on side of bed. Pt in RA. No s/s of distress, no c/o pain. Interperter at bedside. BLL, call light within reach, frequently used items in reach, frequent rounding, parks and recreation worker socks on. Will continue to monitor.
[2022-08-30 07:08] LABS: BASOPHILS % (AUTO) 0.7 % (0-1); EOSINOPHILS # (AUTO) 0.1 X10'3 (0-0.9); EOSINOPHILS % (AUTO) 1.9 % (0-6); HEMATOCRIT 41.3 % (42.0-52.0); HEMOGLOBIN 13.9 g/dl (14.0-17.9); LYMPHOCYTES # (AUTO) 1.4 X10'3 (1.1-4.8); LYMPHOCYTES % (AUTO) 28.7 % (21-51); MEAN CORPUSCULAR HEMOGLOBIN 31.1 PG (27.0-31.0); MEAN CORPUSCULAR HGB CONC 33.7 g/dL (33.0-36.5); MEAN CORPUSCULAR VOLUME 92.2 FL (78-98); MEAN PLATELET VOLUME 6.9 FL (7.4-10.4); MONOCYTES # (AUTO) 0.6 X10'3 (0-0.9); MONOCYTES % (AUTO) 11.4 % (2-12); NEUTROPHILS # (AUTO) 2.8 X10'3 (1.8-7.7); NEUTROPHILS % (AUTO) 57.3 % (42-75); PLATELET COUNT 280 X10'3 (140-440); RED BLOOD COUNT 4.49 X10'6 (4.70-6.10); RED CELL DISTRIBUTION WIDTH 13.4 % (11.5-14.5); WHITE BLOOD COUNT 4.9 X10'3 (4.5-11.0)
[2022-08-30 07:09] LABS: APTT 31 SECONDS (22-32)
[2022-08-30 07:15] LABS: ALANINE AMINOTRANSFERASE 34 U/L (12-78); ALBUMIN 3.5 G/DL (3.4-5.0); ALKALINE PHOSPHATASE 121 IU/L (46-116); ANION GAP 3 (8-16); ASPARTATE AMINO TRANSFERASE 33 U/L (10-37); BILIRUBIN,TOTAL 0.3 MG/DL (0.1-1.0); BLOOD UREA NITROGEN 18 MG/DL (7-18); CALCIUM 8.9 MG/DL (8.5-10.1); CHLORIDE 95 MMOL/L (99-107); CREATININE 0.75 MG/DL (0.60-1.10); GLUCOSE 85 MG/DL (70-104); POTASSIUM 3.6 MMOL/L (3.5-5.1); SODIUM 132 MMOL/L (135-145); TOTAL CARBON DIOXIDE 34.1 MMOL/L (24-32); eGFR > 90 ML/MIN
[2022-08-30] MEDS: ipratropium/albuterol 3ml nebule NEB SCH ×4 (07:33→20:07)
[2022-08-30] MEDS: sacubitril/valsartan 49mg-51mg tablet PO SCH ×2 (07:51→20:24)
[2022-08-30] MEDS: docusate sod 100mg capsule PO SCH ×2 (07:51→20:24)
[2022-08-30] MEDS: EMPAGLIFLOZIN 10 MG TABLET PO SCH (07:51)
[2022-08-30] MEDS: carvedilol 6.25mg tablet PO SCH ×2 (07:51→20:24)
[2022-08-30] MEDS: tamsulosin 0.4mg capsule PO SCH ×2 (07:51→20:25)
[2022-08-30] MEDS: folic acid 1mg tablet PO SCH (07:51)
[2022-08-30] MEDS: furosemide 40mg tablet PO SCH ×2 (07:51→20:24)
[2022-08-30] MEDS: carBAMazepine 100mg chewable tablet PO SCH ×2 (07:51→20:25)
[2022-08-30] MEDS: enoxaparin 60mg/0.6ml syringe SUBCUT SCH ×2 (07:52→20:00)
[2022-08-30] MEDS: enoxaparin 30mg/0.3ml syringe SUBCUT SCH ×2 (07:53→20:00)
[2022-08-30] MEDS: K and/or MAG REPLACEMENT MC SCH ×2 (08:00→20:00)
[2022-08-30] MEDS: MESSAGE TO PHARMACY IJ SCH (09:20)
[2022-08-30] MEDS: Insulin Reg/NS 100units/100mL 100 ML IV SCH (12:00)
--- NOTE | 2022-08-30 12:49 | NUR ---
Brando Mcqueen 1602A, This pt needs a stroke eval. Thank you, Aziza [phone]
[2022-08-30 15:00] VITALS: BP_SYST 119; BP_SYST 121; BP_DIAS 51; BP_DIAS 70
[2022-08-30 18:00] VITALS: BP 140/94
--- NOTE | 2022-08-30 18:26 | NUR ---
Problems reprioritized. Patient report given, questions answered & plan of care reviewed with Sana RN.
[2022-08-30] MEDS: atorvastatin 20mg tablet PO SCH (20:25)
[2022-08-30] MEDS: acetaminophen 325mg tablet PO PRN (20:33)
[2022-08-30 22:00] VITALS: BP 105/67
[2022-08-31 02:00] VITALS: BP 165/100
[2022-08-31] MEDS ORDERED: famotidine/PF 10 mg/ml inj IV ONE (06:00)
[2022-08-31] MEDS ORDERED: LORazepam 2 mg/ml vial IV ONE (06:00)
[2022-08-31 07:00] VITALS: BP 116/76
[2022-08-31 07:15] LABS: BASOPHILS % (AUTO) 0.9 % (0-1); EOSINOPHILS # (AUTO) 0.1 X10'3 (0-0.9); EOSINOPHILS % (AUTO) 1.2 % (0-6); HEMATOCRIT 42.1 % (42.0-52.0); HEMOGLOBIN 14.1 g/dl (14.0-17.9); LYMPHOCYTES % (AUTO) 20.2 % (21-51); MEAN CORPUSCULAR HEMOGLOBIN 30.9 PG (27.0-31.0); MEAN CORPUSCULAR HGB CONC 33.4 g/dL (33.0-36.5); MEAN CORPUSCULAR VOLUME 92.4 FL (78-98); MEAN PLATELET VOLUME 6.9 FL (7.4-10.4); MONOCYTES # (AUTO) 0.6 X10'3 (0-0.9); MONOCYTES % (AUTO) 12.7 % (2-12); NEUTROPHILS # (AUTO) 3.3 X10'3 (1.8-7.7); PLATELET COUNT 294 X10'3 (140-440); RED BLOOD COUNT 4.56 X10'6 (4.70-6.10); RED CELL DISTRIBUTION WIDTH 13.5 % (11.5-14.5); WHITE BLOOD COUNT 5.1 X10'3 (4.5-11.0)
[2022-08-31 07:25] LABS: APTT 29 SECONDS (22-32)
[2022-08-31] MEDS: ipratropium/albuterol 3ml nebule NEB SCH ×4 (07:31→19:14)
[2022-08-31] MEDS: furosemide 40mg tablet PO SCH ×2 (07:42→19:35)
[2022-08-31] MEDS: EMPAGLIFLOZIN 10 MG TABLET PO SCH (07:42)
[2022-08-31] MEDS: folic acid 1mg tablet PO SCH (07:43)
[2022-08-31] MEDS: docusate sod 100mg capsule PO SCH ×2 (07:43→19:36)
[2022-08-31] MEDS: carBAMazepine 100mg chewable tablet PO SCH ×2 (07:43→19:34)
[2022-08-31] MEDS: sacubitril/valsartan 49mg-51mg tablet PO SCH ×2 (07:43→19:35)
[2022-08-31] MEDS: carvedilol 6.25mg tablet PO SCH ×2 (07:43→19:34)
[2022-08-31] MEDS: tamsulosin 0.4mg capsule PO SCH ×2 (07:43→19:35)
[2022-08-31] MEDS: acetaminophen 325mg tablet PO PRN ×2 (07:46→23:28)
[2022-08-31 08:30] LABS: ALANINE AMINOTRANSFERASE 60 U/L (12-78); ALBUMIN 3.6 G/DL (3.4-5.0); ALBUMIN/GLOBULIN RATIO 1.1 (1.1-1.5); ALKALINE PHOSPHATASE 119 IU/L (46-116); ANION GAP 5 (8-16); ASPARTATE AMINO TRANSFERASE 60 U/L (10-37); BILIRUBIN,TOTAL 0.3 MG/DL (0.1-1.0); BLOOD UREA NITROGEN 21 MG/DL (7-18); CHLORIDE 97 MMOL/L (99-107); CREATININE 0.75 MG/DL (0.60-1.10); GLUCOSE 95 MG/DL (70-104); POTASSIUM 3.9 MMOL/L (3.5-5.1); SODIUM 132 MMOL/L (135-145); TOTAL CARBON DIOXIDE 30.2 MMOL/L (24-32); eGFR > 90 ML/MIN
[2022-08-31] MEDS: MESSAGE TO PHARMACY IJ SCH (09:20)
[2022-08-31] MEDS: enoxaparin 60mg/0.6ml syringe SUBCUT SCH ×3 (09:27→13:16)
[2022-08-31] MEDS: enoxaparin 30mg/0.3ml syringe SUBCUT SCH ×3 (09:27→13:16)
[2022-08-31 11:00] VITALS: BP 133/87
[2022-08-31] MEDS: HYDROcodone/acetaminophen 5mg/325mg tablet PO PRN (13:50)
[2022-08-31 15:00] VITALS: BP 122/65
--- NOTE | 2022-08-31 16:34 | NUR ---
Pharmacy notified CABG will be at 1230 09/01 .
--- NOTE | 2022-08-31 16:35 | NUR ---
Blood bank notified CABG will be at 1230 09/01 .
[2022-08-31] MEDS ORDERED: Insulin Reg/NS 100units/100mL 100 ML IV SCH (17:05)
[2022-08-31] MEDS ORDERED: MESSAGE TO NURSING PO ONE (17:05)
[2022-08-31] MEDS ORDERED: dextrose 50%-water 50ml dispensing syringe IV PRN (17:05)
[2022-08-31] MEDS ORDERED: insulin glargine (Lantus) pen - multi-dose SQ PRN (17:05)
[2022-08-31 18:00] VITALS: BP 158/99
--- NOTE | 2022-08-31 18:21 | NUR ---
Problems reprioritized. Patient report given, questions answered & plan of care reviewed with Cheryl Wall. Patient resting in bed in no acute distress.
[2022-08-31] MEDS: K and/or MAG REPLACEMENT MC SCH ×2 (18:42→18:43)
[2022-08-31] MEDS: atorvastatin 20mg tablet PO SCH (19:35)
[2022-08-31] MEDS: mupirocin 2% nasal ointment 1gm UD NS SCH (19:36)
[2022-08-31] MEDS: HYDROcodone/acetaminophen 10/325mg tab PO PRN (19:36)
[2022-08-31] MEDS: sod chloride 0.9% 10ml flush syringe IV SCH (20:00)
[2022-08-31] MEDS: Insulin Reg/NS 100units/100mL 100 ML IV SCH (21:20)
[2022-09-01] VITALS (12 sets, daily range): BP systolic 91–137; BP diastolic 54–89
[2022-09-01] MEDS ORDERED: gabapentin 400mg capsule PO ONE (05:30)
[2022-09-01] MEDS ORDERED: cefazolin 2gm/D5W 100mL 100 ML IV ONE (05:30)
[2022-09-01] MEDS: EMPAGLIFLOZIN 10 MG TABLET PO SCH (06:50)
[2022-09-01 07:02] LABS: BASOPHILS # (AUTO) 0.1 X10'3 (0-0.2); BASOPHILS % (AUTO) 1.8 % (0-1); EOSINOPHILS # (AUTO) 0.1 X10'3 (0-0.9); HEMATOCRIT 40.5 % (42.0-52.0); LYMPHOCYTES # (AUTO) 1.2 X10'3 (1.1-4.8); LYMPHOCYTES % (AUTO) 22.7 % (21-51); MEAN CORPUSCULAR HEMOGLOBIN 31.8 PG (27.0-31.0); MEAN CORPUSCULAR HGB CONC 34.6 g/dL (33.0-36.5); MEAN PLATELET VOLUME 7.2 FL (7.4-10.4); MONOCYTES # (AUTO) 0.5 X10'3 (0-0.9); MONOCYTES % (AUTO) 10.2 % (2-12); NEUTROPHILS # (AUTO) 3.4 X10'3 (1.8-7.7); NEUTROPHILS % (AUTO) 64.3 % (42-75); PLATELET COUNT 285 X10'3 (140-440); RED BLOOD COUNT 4.41 X10'6 (4.70-6.10); RED CELL DISTRIBUTION WIDTH 13.5 % (11.5-14.5); WHITE BLOOD COUNT 5.3 X10'3 (4.5-11.0)
[2022-09-01 07:08] LABS: APTT 28 SECONDS (22-32)
[2022-09-01 07:18] LABS: ALANINE AMINOTRANSFERASE 113 U/L (12-78); ALBUMIN 3.4 G/DL (3.4-5.0); ALKALINE PHOSPHATASE 116 IU/L (46-116); ANION GAP 5 (8-16); ASPARTATE AMINO TRANSFERASE 96 U/L (10-37); BILIRUBIN,TOTAL 0.3 MG/DL (0.1-1.0); BLOOD UREA NITROGEN 18 MG/DL (7-18); BUN/CREATININE RATIO 25.7 (5.4-32.0); CALCIUM 8.8 MG/DL (8.5-10.1); CHLORIDE 100 MMOL/L (99-107); GLUCOSE 100 MG/DL (70-104); POTASSIUM 4.1 MMOL/L (3.5-5.1); SODIUM 134 MMOL/L (135-145); TOTAL PROTEIN 6.9 G/DL (6.4-8.2); eGFR > 90 ML/MIN
[2022-09-01] MEDS: ipratropium/albuterol 3ml nebule NEB SCH ×4 (07:18→19:52)
[2022-09-01] MEDS: K and/or MAG REPLACEMENT MC SCH (08:00)
[2022-09-01] MEDS: furosemide 40mg tablet PO SCH (08:00)
[2022-09-01] MEDS: sacubitril/valsartan 49mg-51mg tablet PO SCH (08:00)
[2022-09-01] MEDS: sod chloride 0.9% 10ml flush syringe IV SCH (08:00)
[2022-09-01] MEDS: tamsulosin 0.4mg capsule PO SCH ×2 (08:00→20:00)
[2022-09-01] MEDS: folic acid 1mg tablet PO SCH (08:00)
[2022-09-01] MEDS: docusate sod 100mg capsule PO SCH (08:00)
[2022-09-01] MEDS: carvedilol 6.25mg tablet PO SCH (08:58)
[2022-09-01] MEDS: carBAMazepine 100mg chewable tablet PO SCH ×2 (08:59→21:00)
[2022-09-01] MEDS ORDERED: famotidine 20mg tablet PO ONE (11:00)
[2022-09-01] MEDS ORDERED: LORazepam 2 mg/ml vial IV ONE (11:00)
[2022-09-01] MEDS: mupirocin 2% nasal ointment 1gm UD NS SCH ×2 (11:02→21:09)
[2022-09-01] MEDS ORDERED: ceFAZolin 1000mg inj ONE ×3 (12:26→18:54)
[2022-09-01] MEDS ORDERED: epiNEPHrine 1 mg/ml inj ONE (12:26)
[2022-09-01] MEDS ORDERED: magnesium 1 GM/2 ML inj ONE (12:30)
[2022-09-01] MEDS ORDERED: calcium chloride 100 MG/1 ML inj IV ONE (12:30)
[2022-09-01] MEDS ORDERED: aminocaproic acid 250 MG/1 ML inj. ONE (12:30)
[2022-09-01] MEDS ORDERED: NORepinephrine bitart. inj. IV ONE (12:30)
[2022-09-01] MEDS ORDERED: LIDOcaine 2% (20 mg/ml) 5ml cardiac syringe ONE (12:30)
[2022-09-01] MEDS ORDERED: heparin 10,000 units/1 ML INJ ONE (12:30)
[2022-09-01] MEDS ORDERED: methylPREDNISolone sod succ 1000mg vial ONE (12:30)
[2022-09-01] MEDS ORDERED: potassium Cl 2 mEq/ml inj IV ONE (12:30)
[2022-09-01] MEDS ORDERED: sodium bicarbonate (8.4%) 1 mEq/ml syringe ONE (12:30)
[2022-09-01] MEDS ORDERED: albumin (human) 25% 100 ML IV solution IV ONE (12:30)
[2022-09-01] MEDS ORDERED: SUFENTANIL CITRATE 50 MCG/ML 2ml ampule IV ONE (12:43)
[2022-09-01] MEDS ORDERED: MIDAZolam 1 MG/ML 5ML VIAL ONE (12:44)
[2022-09-01] MEDS ORDERED: propofol inj 20 ML IV ONE (12:44)
[2022-09-01] MEDS ORDERED: amiodarone in dextrose, iso-osm 360mg/200ml bag IV ONE (12:52)
[2022-09-01] MEDS ORDERED: protamine sulf. 10mg/ml inj. IV ONE (12:52)
[2022-09-01] MEDS ORDERED: sevoflurane 250ml liquid IH ONE (12:52)
[2022-09-01 13:42] LABS: ABG BASE EXCESS 1.4 mmol/L (-2.0-2.0); ABG HCO3 27.6 mmol/L (22.0-26.0); ABG OXYGEN SATURATION 99.6 % (94-97); ABG PCO2 49.7 mmHg (35.0-48.0); ABG PO2 255.1 mmHg (75.0-100.0); CL (ABG) 99 mmol/L (99-107); FCOHb 0.7 % (0.0-3.9); FO2Hb 98.9 % (94-97); GLUCOSE (ABG) 104 mg/dl (70-104); IONIZED CA (ABG) 1.18 mmol/L (1.10-1.30); TOTAL HEMOGLOBIN 13.7 G/dl (14.0-17.9)
[2022-09-01] MEDS ORDERED: BUPIVAcaine 0.5% inj/PF 30 ML ONE ×2 (13:51→18:56)
[2022-09-01 13:53] LABS: ACT @ 1.70 U 235 SEC (193-297); ACT @ 2.84 U 333 SEC (260-420); BASELINE ACT 136 SEC (101-148); PATIENT WEIGHT 89.0k KG
--- NOTE | 2022-09-01 14:27 | NUR ---
all patient belongings were taken by daughter Jose when patient went to [facility] @[phone]
[2022-09-01] MEDS ORDERED: gelatin sponge, absorbable (Gelfoam 100) sponge TP ONE (14:28)
[2022-09-01] MEDS ORDERED: BUPIVAcaine 0.5% inj/PF 30 ml vial IJ ONE (14:30)
[2022-09-01] MEDS ORDERED: heparin 10,000 units/1 ML INJ IV ONE (14:30)
[2022-09-01] MEDS ORDERED: papaverine 30 mg/ml 2ml inj. IA ONE (14:30)
[2022-09-01 15:25] LABS: ABG BASE EXCESS VENOUS -1.1 mmol/L (-2.0 - 2.0); ABG HCO3 VENOUS 25.8 mmol/L (21.0-28.0); ABG PCO2 VENOUS 51.8 mmHg (41.0-54.0); ABG PO2 VENOUS 40.9 mmHg (25.0-35.0); CL (ABG) 99 mmol/L (99-107); FCOHb VENOUS 0.6 %; FMetHb VENOUS 0.3 % (0.0 - 0.5); FO2Hb VENOUS 70.1 %; GLUCOSE (ABG) 106 mg/dl (70-104); IONIZED CA (ABG) 1.13 mmol/L (1.10-1.30); K (ABG) 4.2 mmol/L (3.5-5.1); TOTAL HEMOGLOBIN 13.6 G/dl (14.0-17.9)
[2022-09-01 16:01] LABS: ABG BASE EXCESS VENOUS 1.2 mmol/L (-2.0 - 2.0); ABG HCO3 VENOUS 26.7 mmol/L (21.0-28.0); ABG PCO2 VENOUS 46.5 mmHg (41.0-54.0); ABG PO2 VENOUS 44.5 mmHg (25.0-35.0); CL (ABG) 97 mmol/L (99-107); FCOHb VENOUS 0.4 %; FHHb VENOUS 20.9 %; FMetHb VENOUS 0.3 % (0.0 - 0.5); FO2Hb VENOUS 78.4 %; GLUCOSE (ABG) 103 mg/dl (70-104); IONIZED CA (ABG) 1.02 mmol/L (1.10-1.30); K (ABG) 3.5 mmol/L (3.5-5.1); TOTAL HEMOGLOBIN 10.8 G/dl (14.0-17.9)
[2022-09-01 16:19] LABS: ABG HCO3 26.7 mmol/L (22.0-26.0); ABG OXYGEN SATURATION 99.7 % (94-97); ABG PCO2 47.5 mmHg (35.0-48.0); ABG PO2 484.2 mmHg (75.0-100.0); CL (ABG) 100 mmol/L (99-107); FCOHb 0.3 % (0.0-3.9); FMetHb 0.3 % (0.0-1.5); FO2Hb 99.1 % (94-97); GLUCOSE (ABG) 105 mg/dl (70-104); IONIZED CA (ABG) 1.06 mmol/L (1.10-1.30); K (ABG) 5.4 mmol/L (3.5-5.1)
[2022-09-01 16:51] LABS: ABG BASE EXCESS -1.4 mmol/L (-2.0-2.0); ABG HCO3 22.6 mmol/L (22.0-26.0); ABG OXYGEN SATURATION 99.4 % (94-97); ABG PCO2 35.5 mmHg (35.0-48.0); ABG PO2 337.9 mmHg (75.0-100.0); CL (ABG) 100 mmol/L (99-107); FMetHb 0.3 % (0.0-1.5); FO2Hb 99.1 % (94-97); GLUCOSE (ABG) 122 mg/dl (70-104); IONIZED CA (ABG) 1.06 mmol/L (1.10-1.30); K (ABG) 4.8 mmol/L (3.5-5.1); TOTAL HEMOGLOBIN 10.5 G/dl (14.0-17.9)
[2022-09-01 17:16] LABS: ABG BASE EXCESS 0.9 mmol/L (-2.0-2.0); ABG HCO3 25.2 mmol/L (22.0-26.0); ABG OXYGEN SATURATION 99.3 % (94-97); ABG PCO2 39.1 mmHg (35.0-48.0); ABG PO2 374.8 mmHg (75.0-100.0); CL (ABG) 101 mmol/L (99-107); FCOHb 0.3 % (0.0-3.9); FMetHb 0.3 % (0.0-1.5); FO2Hb 98.7 % (94-97); GLUCOSE (ABG) 138 mg/dl (70-104); IONIZED CA (ABG) 1.04 mmol/L (1.10-1.30); K (ABG) 5.3 mmol/L (3.5-5.1); TOTAL HEMOGLOBIN 10.6 G/dl (14.0-17.9)
[2022-09-01 17:49] LABS: ABG BASE EXCESS 1.1 mmol/L (-2.0-2.0); ABG HCO3 24.8 mmol/L (22.0-26.0); ABG OXYGEN SATURATION 99.2 % (94-97); ABG PCO2 36.1 mmHg (35.0-48.0); ABG PO2 288.5 mmHg (75.0-100.0); CL (ABG) 101 mmol/L (99-107); FCOHb 0.3 % (0.0-3.9); FMetHb 0.3 % (0.0-1.5); FO2Hb 98.6 % (94-97); GLUCOSE (ABG) 135 mg/dl (70-104); IONIZED CA (ABG) 1.62 mmol/L (1.10-1.30); K (ABG) 5.5 mmol/L (3.5-5.1); TOTAL HEMOGLOBIN 10.1 G/dl (14.0-17.9)
[2022-09-01 18:12] LABS: ABG BASE EXCESS VENOUS 0.6 mmol/L (-2.0 - 2.0); ABG HCO3 VENOUS 26.1 mmol/L (21.0-28.0); ABG PCO2 VENOUS 45.7 mmHg (41.0-54.0); ABG PO2 VENOUS 45.4 mmHg (25.0-35.0); CL (ABG) 101 mmol/L (99-107); FCOHb VENOUS 0.4 %; FHHb VENOUS 21.3 %; FMetHb VENOUS 0.3 % (0.0 - 0.5); GLUCOSE (ABG) 137 mg/dl (70-104); IONIZED CA (ABG) 1.21 mmol/L (1.10-1.30); K (ABG) 4.6 mmol/L (3.5-5.1); TOTAL HEMOGLOBIN 10.7 G/dl (14.0-17.9)
[2022-09-01 18:15] LABS: ACTIVATED CLOTTING TIME 118 SEC (101-148)
[2022-09-01] MEDS ORDERED: albumin (Human) 5% 250ml 250 ML IV ONE ×2 (18:35)
[2022-09-01] MEDS ORDERED: rocuronium 10mg/ml inj IV ONE ×4 (18:36)
[2022-09-01] MEDS ORDERED: potassium Cl 40MEQ/1/2NS 520ml 520 ML IV PRN (19:30)
[2022-09-01] MEDS ORDERED: sodium phosphate inj. 15 MMOL in dextrose 5%-water 250 ML IV PRN (19:30)
[2022-09-01] MEDS ORDERED: sodium chloride 0.45% 1,000 ML IV SCH (19:30)
[2022-09-01] MEDS ORDERED: ondansetron/PF 4mg/2ml inj IV PRN (19:30)
[2022-09-01] MEDS ORDERED: sodium phosphate inj. 30 MMOL in dextrose 5%-water 250 ML IV PRN (19:30)
[2022-09-01] MEDS ORDERED: potassium Cl 20 mEq SR tablet PO PRN (19:30)
[2022-09-01] MEDS ORDERED: mineral oil 133ml enema RC PRN (19:30)
[2022-09-01] MEDS ORDERED: HYDROcodone/acetaminophen 10/325mg tab PO PRN (19:30)
[2022-09-01] MEDS ORDERED: metoclopramide 5 mg/ml inj IV PRN (19:30)
[2022-09-01] MEDS ORDERED: Neutra Phos packet PO PRN (19:30)
[2022-09-01] MEDS ORDERED: magnesium citrate 296ml oral solution PO PRN (19:30)
[2022-09-01] MEDS ORDERED: bisacodyl 10mg suppository rectal RC PRN (19:30)
[2022-09-01] MEDS ORDERED: insulin glargine (Lantus) pen - multi-dose SQ PRN (19:30)
[2022-09-01] MEDS ORDERED: magnesium 4gm in 100ml NS 100 ML IV PRN (19:30)
[2022-09-01] MEDS ORDERED: normal saline 250ml IV soln 250 ML IV PRN (19:30)
[2022-09-01] MEDS ORDERED: acetaminophen 325mg tablet PO PRN ×2 (19:30)
[2022-09-01] MEDS ORDERED: dextrose 50%-water 50ml dispensing syringe IV PRN (19:30)
[2022-09-01] MEDS ORDERED: morphine 2 MG/ML inj. syringe IV PRN (19:30)
[2022-09-01] MEDS ORDERED: potassium CL 10mEq/100ml bag 100 ML IV PRN (19:30)
[2022-09-01] MEDS ORDERED: magnesium hydroxide 30ml (MOM) UD suspension PO PRN (19:30)
[2022-09-01] MEDS ORDERED: magnesium 2GM in 50ml NS 50 ML IV PRN (19:30)
--- NOTE | 2022-09-01 19:40 | NUR ---
Received to room 2008, accompanied by Dr. Logan, CA Calhoun, Dr. Whitlock, and surgical crew. Placed on ventilator, to system planning engineer, arterial line and PA line pressure zeroed & monitored. Chest tubes to suction at 20 cm. Bhat cath to gravity drainage. Dressings are dry and intact. See assessment record. All vasoactive drugs are infusing via central line.
[2022-09-01] MEDS ORDERED: potassium Cl 40MEQ/270ML bag 270 ML IV PRN (19:57)
[2022-09-01] MEDS ORDERED: niCARDipine-NS 40mg/200ml IVPB 200 ML IV PRN (19:58)
[2022-09-01] MEDS ORDERED: DOPamine 400mg/D5W 250ml 250 ML IV PRN (19:59)
[2022-09-01] MEDS: sennosides/docusate sodium tablet PO SCH (20:00)
[2022-09-01] MEDS ORDERED: nitroGLYCERIN-Tridil 50MG/D5W 250 ML IV PRN (20:02)
[2022-09-01 20:03] LABS: ABG BASE EXCESS -3.7 mmol/L (-2.0-2.0); ABG HCO3 22.7 mmol/L (22.0-26.0); ABG OXYGEN SATURATION 99.1 % (94-97); ABG PCO2 (T) 44.2 mmHg (35.0-48.0); ABG PO2 (T) 228.2 mmHg (75.0-100.0); FMetHb 0.3 % (0.0-1.5); FO2Hb 98.8 % (94-97); PEEP 5 cm H2O; RESPIRATORY RATE 12 b/min; TIDAL VOLUME 500 mL; TOTAL HEMOGLOBIN 12.7 G/dl (14.0-17.9)
[2022-09-01 20:08] LABS: BASOPHILS % (AUTO) 0.1 % (0-1); EOSINOPHILS % (AUTO) 0.1 % (0-6); HEMATOCRIT 35.4 % (42.0-52.0); HEMOGLOBIN 11.7 g/dl (14.0-17.9); LYMPHOCYTES # (AUTO) 0.5 X10'3 (1.1-4.8); LYMPHOCYTES % (AUTO) 3.5 % (21-51); MEAN CORPUSCULAR HEMOGLOBIN 30.7 PG (27.0-31.0); MEAN PLATELET VOLUME 6.7 FL (7.4-10.4); MONOCYTES # (AUTO) 0.4 X10'3 (0-0.9); NEUTROPHILS # (AUTO) 12.1 X10'3 (1.8-7.7); NEUTROPHILS % (AUTO) 93.3 % (42-75); PLATELET COUNT 168 X10'3 (140-440); RED BLOOD COUNT 3.81 X10'6 (4.70-6.10); RED CELL DISTRIBUTION WIDTH 13.2 % (11.5-14.5)
[2022-09-01] MEDS ORDERED: milrinone (Primacor) 20mg/D5W 100 ML IV PRN (20:11)
[2022-09-01 20:21] LABS: ALANINE AMINOTRANSFERASE 85 U/L (12-78); ALBUMIN 3.3 G/DL (3.4-5.0); ALBUMIN/GLOBULIN RATIO 1.8 (1.1-1.5); ALKALINE PHOSPHATASE 71 IU/L (46-116); ANION GAP 6 (8-16); APTT 27 SECONDS (22-32); ASPARTATE AMINO TRANSFERASE 93 U/L (10-37); BILIRUBIN,TOTAL 0.6 MG/DL (0.1-1.0); BLOOD UREA NITROGEN 13 MG/DL (7-18); CHLORIDE 107 MMOL/L (99-107); CREATININE 0.62 MG/DL (0.60-1.10); GLUCOSE 142 MG/DL (70-104); MAGNESIUM 2.5 MG/DL (1.5-2.4); PHOSPHORUS 3.4 MG/DL (2.3-4.5); POTASSIUM 4.3 MMOL/L (3.5-5.1); SODIUM 140 MMOL/L (135-145); TOTAL CARBON DIOXIDE 26.9 MMOL/L (24-32); TOTAL PROTEIN 5.1 G/DL (6.4-8.2); eGFR > 90 ML/MIN
[2022-09-01] MEDS ORDERED: propofol 1000mg/100ml bottle 100 ML IV SCH (20:21)
[2022-09-01] MEDS: morphine 4 MG/ML inj SYRINge IV PRN (20:28)
[2022-09-01 20:33] LABS: TRIGLYCERIDES 40 MG/DL (20-135)
[2022-09-01] MEDS: dexmedetomidine inj. 400 MCG in normal saline 100ml IV soln 96 ML IV PRN (20:33)
[2022-09-01] MEDS: atorvastatin 10mg tablet PO SCH (21:09)
[2022-09-01] MEDS: gabapentin 300mg capsule PO SCH (21:09)
[2022-09-01] MEDS: Insulin Reg/NS 100units/100mL 100 ML IV SCH (21:09)
[2022-09-01] MEDS: vancomycin/NS 1 GM ADD-VANTAGE 250 ML IV SCH (21:41)
[2022-09-01] MEDS: ipratropium/albuterol 3ml nebule NEB PRN (22:47)
[2022-09-01] MEDS: amiodarone/D5 360MG/200ML BAG 200 ML IV SCH (23:25)
[2022-09-02] VITALS (28 sets, daily range): BP systolic 84–146; BP diastolic 50–87
[2022-09-02] MEDS: albumin (Human) 5% 250ml 250 ML IV PRN ×2 (00:24→00:54)
[2022-09-02] MEDS: ceFAZolin/D5W- 1GM premix 50 ML IV SCH ×3 (00:55→15:39)
[2022-09-02] MEDS: dexmedetomidine inj. 400 MCG in normal saline 100ml IV soln 96 ML IV PRN (00:56)
[2022-09-02] MEDS: Insulin Reg/NS 100units/100mL 100 ML IV SCH (02:20)
[2022-09-02 02:44] LABS: BASOPHILS % (AUTO) 0.1 % (0-1); EOSINOPHILS % (AUTO) 0 % (0-6); HEMATOCRIT 31.1 % (42.0-52.0); HEMOGLOBIN 10.7 g/dl (14.0-17.9); LYMPHOCYTES # (AUTO) 0.3 X10'3 (1.1-4.8); LYMPHOCYTES % (AUTO) 3.2 % (21-51); MEAN CORPUSCULAR HEMOGLOBIN 31.8 PG (27.0-31.0); MEAN CORPUSCULAR HGB CONC 34.3 g/dL (33.0-36.5); MEAN CORPUSCULAR VOLUME 92.7 FL (78-98); MEAN PLATELET VOLUME 6.9 FL (7.4-10.4); MONOCYTES # (AUTO) 0.4 X10'3 (0-0.9); MONOCYTES % (AUTO) 3.7 % (2-12); PLATELET COUNT 149 X10'3 (140-440); RED BLOOD COUNT 3.36 X10'6 (4.70-6.10); RED CELL DISTRIBUTION WIDTH 13.6 % (11.5-14.5); WHITE BLOOD COUNT 10.7 X10'3 (4.5-11.0)
[2022-09-02] MEDS: ipratropium/albuterol 3ml nebule NEB PRN (02:48)
[2022-09-02 02:55] LABS: APTT 28 SECONDS (22-32)
[2022-09-02 03:07] LABS: ALANINE AMINOTRANSFERASE 81 U/L (12-78); ALBUMIN 3.4 G/DL (3.4-5.0); ALBUMIN/GLOBULIN RATIO 1.9 (1.1-1.5); ALKALINE PHOSPHATASE 60 IU/L (46-116); ANION GAP 6 (8-16); ASPARTATE AMINO TRANSFERASE 84 U/L (10-37); BILIRUBIN,TOTAL 0.3 MG/DL (0.1-1.0); BLOOD UREA NITROGEN 19 MG/DL (7-18); BUN/CREATININE RATIO 18.3 (5.4-32.0); CALCIUM 8.7 MG/DL (8.5-10.1); CHLORIDE 107 MMOL/L (99-107); CREATININE 1.04 MG/DL (0.60-1.10); GLUCOSE 124 MG/DL (70-104); MAGNESIUM 2.5 MG/DL (1.5-2.4); PHOSPHORUS 3.1 MG/DL (2.3-4.5); POTASSIUM 4.1 MMOL/L (3.5-5.1); SODIUM 140 MMOL/L (135-145); TOTAL CARBON DIOXIDE 26.6 MMOL/L (24-32); TOTAL PROTEIN 5.2 G/DL (6.4-8.2); TRIGLYCERIDES 28 MG/DL (20-135); eGFR 73 ML/MIN
[2022-09-02] MEDS: milrinone (Primacor) 20mg/D5W 100 ML IV PRN ×2 (03:28→18:29)
[2022-09-02] MEDS: potassium Cl 20mEq/100mL bag 100 ML IV PRN ×2 (03:43→04:47)
[2022-09-02 03:52] LABS: ABG BASE EXCESS -1.9 mmol/L (-2.0-2.0); ABG OXYGEN SATURATION 92.6 % (94-97); ABG PCO2 (T) 43.6 mmHg (35.0-48.0); ABG PO2 (T) 64.8 mmHg (75.0-100.0); FCOHb 0.3 % (0.0-3.9); FMetHb 0.1 % (0.0-1.5); FO2Hb 92.2 % (94-97); PEEP 5 cm H2O; RESPIRATORY RATE 12 b/min; TIDAL VOLUME 500 mL; TOTAL HEMOGLOBIN 11.4 G/dl (14.0-17.9)
--- NOTE | 2022-09-02 04:10 | NUR ---
Called Dr. Logan regarding pt's decreasing BP, received orders to stop nitro drip and amiodarone drip and start low dose levophed which i have done and the pt is responding well.
[2022-09-02] MEDS ORDERED: NORepinephrine 8mg/ 250ml NS 250 ML IV PRN (04:35)
[2022-09-02] MEDS: amiodarone/D5 360MG/200ML BAG 200 ML IV SCH ×4 (05:14→23:26)
--- NOTE | 2022-09-02 06:33 | NUR ---
Problems reprioritized. Patient report given, questions answered & plan of care reviewed with Georgi TOVAR.
[2022-09-02] MEDS: ipratropium/albuterol 3ml nebule NEB SCH ×4 (07:34→20:24)
[2022-09-02 07:57] LABS: ABG BASE EXCESS -2.8 mmol/L (-2.0-2.0); ABG HCO3 23.1 mmol/L (22.0-26.0); ABG OXYGEN SATURATION 92.8 % (94-97); ABG PCO2 (T) 44.4 mmHg (35.0-48.0); FCOHb 0.3 % (0.0-3.9); FMetHb 0.2 % (0.0-1.5); FO2Hb 92.3 % (94-97); PEEP 5 cm H2O; TIDAL VOLUME 795 mL; TOTAL HEMOGLOBIN 11.9 G/dl (14.0-17.9)
[2022-09-02] MEDS: mupirocin 2% nasal ointment 1gm UD NS SCH ×2 (08:54→20:51)
[2022-09-02] MEDS: vancomycin/NS 1 GM ADD-VANTAGE 250 ML IV SCH ×2 (10:09→20:51)
[2022-09-02] MEDS: gabapentin 300mg capsule PO SCH ×3 (10:18→20:53)
[2022-09-02] MEDS: folic acid 1mg tablet PO SCH (10:18)
[2022-09-02] MEDS: sennosides/docusate sodium tablet PO SCH ×2 (10:18→20:53)
[2022-09-02] MEDS: metoprolol tartrate 12.5mg (1/2 tablet) PO SCH ×2 (10:18→20:53)
[2022-09-02] MEDS: aspirin 81mg tab.chew PO SCH (10:18)
[2022-09-02] MEDS: tamsulosin 0.4mg capsule PO SCH ×2 (10:18→20:53)
[2022-09-02] MEDS: HYDROcodone/acetaminophen 10/325mg tab PO PRN ×3 (10:19→21:49)
[2022-09-02] MEDS: carBAMazepine 100mg chewable tablet PO SCH ×2 (10:23→20:54)
--- NOTE | 2022-09-02 11:17 | NUR ---
Nutrition consult: Pt POD #1 s/p CABG x 3, just extubated this morning. Pt would benefit from nutrition therapy education once appropriate. Prior to OR pt was eating well, documented with mostly 100% PO intake of meals meeting estimated nutrient needs. LBM 08/31, receiving routine bowel care. Will continue to follow. Recommendations: 1) Continue NCS diet 2) Monitor need for additional protein for satiety 3) Routine bowel care 4) Daily scaled weights per rx 5) Post-CABG nutrition therapy education when appropriate Addendum: 09/02/22 at [address] Amended: Links added.
[2022-09-02] MEDS: morphine 4 MG/ML inj SYRINge IV PRN (12:41)
--- NOTE | 2022-09-02 18:30 | NUR ---
Problems reprioritized. Patient report given, questions answered & plan of care reviewed with GUY Leon.
--- NOTE | 2022-09-02 18:30 | NUR ---
Patient in room CICU 2008. I have received report from Vel TOVAR and had the opportunity to ask questions and assume patient care.
[2022-09-02] MEDS: atorvastatin 10mg tablet PO SCH (20:53)
[2022-09-03] VITALS (20 sets, daily range): BP systolic 112–183; BP diastolic 56–99
[2022-09-03] MEDS: ceFAZolin/D5W- 1GM premix 50 ML IV SCH ×2 (00:11→07:26)
[2022-09-03] MEDS: HYDROcodone/acetaminophen 10/325mg tab PO PRN ×4 (01:54→17:25)
[2022-09-03] MEDS: morphine 4 MG/ML inj SYRINge IV PRN (05:11)
[2022-09-03] MEDS: amiodarone/D5 360MG/200ML BAG 200 ML IV SCH (05:30)
[2022-09-03 05:45] LABS: BASOPHILS % (AUTO) 0.1 % (0-1); EOSINOPHILS % (AUTO) 0 % (0-6); HEMATOCRIT 31.1 % (42.0-52.0); HEMOGLOBIN 10.3 g/dl (14.0-17.9); LYMPHOCYTES # (AUTO) 0.8 X10'3 (1.1-4.8); LYMPHOCYTES % (AUTO) 5.5 % (21-51); MEAN CORPUSCULAR HGB CONC 33.2 g/dL (33.0-36.5); MEAN CORPUSCULAR VOLUME 93.5 FL (78-98); MEAN PLATELET VOLUME 7.1 FL (7.4-10.4); MONOCYTES # (AUTO) 1.4 X10'3 (0-0.9); NEUTROPHILS # (AUTO) 12.1 X10'3 (1.8-7.7); NEUTROPHILS % (AUTO) 84.4 % (42-75); PLATELET COUNT 154 X10'3 (140-440); RED BLOOD COUNT 3.33 X10'6 (4.70-6.10); RED CELL DISTRIBUTION WIDTH 13.8 % (11.5-14.5); WHITE BLOOD COUNT 14.4 X10'3 (4.5-11.0)
[2022-09-03 06:01] LABS: ALBUMIN 3.4 G/DL (3.4-5.0); ANION GAP 3 (8-16); BLOOD UREA NITROGEN 18 MG/DL (7-18); BUN/CREATININE RATIO 22.8 (5.4-32.0); CALCIUM 8.8 MG/DL (8.5-10.1); CHLORIDE 100 MMOL/L (99-107); CREATININE 0.79 MG/DL (0.60-1.10); GLUCOSE 129 MG/DL (70-104); POTASSIUM 4.9 MMOL/L (3.5-5.1); SODIUM 132 MMOL/L (135-145); TOTAL CARBON DIOXIDE 28.6 MMOL/L (24-32); eGFR > 90 ML/MIN
[2022-09-03] MEDS: Insulin Reg/NS 100units/100mL 100 ML IV SCH (06:28)
--- NOTE | 2022-09-03 06:30 | NUR ---
Patient in room CICU 2007. I have received report from Carolyn TOVAR and had the opportunity to ask questions and assume patient care.
[2022-09-03] MEDS ORDERED: furosemide 20 MG/2 ML vial IV ONE (06:45)
--- NOTE | 2022-09-03 07:11 | NUR ---
Problems reprioritized. Patient report given, questions answered & plan of care reviewed with Cecilia TOVAR.
[2022-09-03] MEDS: aspirin 81mg tab.chew PO SCH (07:26)
[2022-09-03] MEDS: ketorolac trometh. 30mg/ml inj. IV SCH ×3 (07:26→18:05)
[2022-09-03] MEDS: sennosides/docusate sodium tablet PO SCH ×2 (07:27→21:43)
[2022-09-03] MEDS: folic acid 1mg tablet PO SCH (07:27)
[2022-09-03] MEDS: pantoprazole 40mg Tablet.DR PO SCH (07:27)
[2022-09-03] MEDS: tamsulosin 0.4mg capsule PO SCH ×2 (07:27→21:41)
[2022-09-03] MEDS: metoprolol tartrate 12.5mg (1/2 tablet) PO SCH ×2 (07:27→21:43)
[2022-09-03] MEDS: carBAMazepine 100mg chewable tablet PO SCH ×2 (07:28→21:44)
[2022-09-03] MEDS: mupirocin 2% nasal ointment 1gm UD NS SCH (07:28)
[2022-09-03] MEDS: ipratropium/albuterol 3ml nebule NEB SCH ×4 (07:36→19:27)
[2022-09-03] MEDS ORDERED: magnesium 4gm in 100ml NS 100 ML IV PRN (08:20)
[2022-09-03] MEDS ORDERED: potassium Cl 20 mEq SR tablet PO PRN ×2 (08:20)
[2022-09-03] MEDS ORDERED: potassium Cl 20mEq/100mL bag 100 ML IV PRN (08:20)
[2022-09-03] MEDS ORDERED: potassium CL 10mEq/100ml bag 100 ML IV PRN (08:20)
[2022-09-03] MEDS ORDERED: potassium Cl 40MEQ/270ML bag 250 ML IV PRN (08:20)
[2022-09-03] MEDS ORDERED: potassium Cl 40MEQ/1/2NS 520ml 520 ML IV PRN (08:20)
[2022-09-03] MEDS ORDERED: magnesium 2GM in 50ml NS 50 ML IV PRN (08:20)
--- NOTE | 2022-09-03 11:30 | NUR ---
Patient race relations professor sick and states she has to leave. Unable to get anyone else to come and interpret until 1330. Patient notified of plans in place. Video race relations professor device in room.
--- NOTE | 2022-09-03 12:30 | NUR ---
Patient's daughter into see patient. Assisted with interpretation as patient ambulated.
--- NOTE | 2022-09-03 14:14 | NUR ---
Nutrition consult: Pt seen at bedside provided with written and verbal post CABG nutrition therapy education. Pt endorses a good appetite which is evident with documented 100% PO intake of meals. Pt reports getting full from meals and denies need for additional protein at this time. Pt denies food allergies or difficult chewing/swallowing. RD contact information provided and pt informed how to reach out if needed. Will remain available. Addendum: 09/03/22 at [address] Amended: Links added.
--- NOTE | 2022-09-03 15:27 | NUR ---
Childhood Development Teacher told to leave per her boss d/t snow and bad road conditions. Another american sign language interpreter will be present at 1800. Video assisted interpretation present prn. Patient currently sleeping.
--- NOTE | 2022-09-03 17:42 | NUR ---
Patient slept well for 3 hours with cpap on. Remains in SR with occ PAC's. Lungs coarse. Needs pushing with pumonary toilet. Moist productive cough. On 4L n/c w/a. Up to chair for dinner. Med with [place] for pain relief. F/C dc'd. No air leak noted in CT.
--- NOTE | 2022-09-03 18:22 | NUR ---
Problems reprioritized. Patient report given, questions answered & plan of care reviewed with Julio Cesar TOVAR.
--- NOTE | 2022-09-03 20:37 | NUR ---
Report called to Audrey TOVAR receiving nurse. Transferred via Wheelchair. Belongings . Special Issues communicated to receiving nurse.
[2022-09-03] MEDS: apixaban 5mg tablet PO SCH (21:41)
[2022-09-03] MEDS: magnesium Cl slow-release 64mg tablet PO SCH (21:43)
[2022-09-03] MEDS: atorvastatin 10mg tablet PO SCH (21:44)
[2022-09-04] MEDS: ketorolac trometh. 30mg/ml inj. IV SCH ×4 (01:55→19:41)
[2022-09-04 06:00] VITALS: BP 130/84
--- NOTE | 2022-09-04 06:58 | NUR ---
Patient in room PCU 3023. I have received report from GUY Ventura and had the opportunity to ask questions and assume patient care.
[2022-09-04] MEDS: ipratropium/albuterol 3ml nebule NEB SCH ×4 (07:15→20:35)
[2022-09-04] MEDS ORDERED: furosemide 40mg/4ml inj IV ONE (07:45)
[2022-09-04] MEDS: folic acid 1mg tablet PO SCH (08:00)
[2022-09-04 08:01] LABS: BASOPHILS % (AUTO) 0.1 % (0-1); EOSINOPHILS % (AUTO) 0.1 % (0-6); HEMATOCRIT 29.3 % (42.0-52.0); HEMOGLOBIN 10.1 g/dl (14.0-17.9); LYMPHOCYTES # (AUTO) 0.9 X10'3 (1.1-4.8); LYMPHOCYTES % (AUTO) 8.2 % (21-51); MEAN CORPUSCULAR HEMOGLOBIN 32.2 PG (27.0-31.0); MEAN CORPUSCULAR HGB CONC 34.4 g/dL (33.0-36.5); MEAN CORPUSCULAR VOLUME 93.4 FL (78-98); MEAN PLATELET VOLUME 7.2 FL (7.4-10.4); MONOCYTES # (AUTO) 1.4 X10'3 (0-0.9); MONOCYTES % (AUTO) 12.9 % (2-12); NEUTROPHILS # (AUTO) 8.3 X10'3 (1.8-7.7); NEUTROPHILS % (AUTO) 78.7 % (42-75); PLATELET COUNT 151 X10'3 (140-440); RED BLOOD COUNT 3.14 X10'6 (4.70-6.10); RED CELL DISTRIBUTION WIDTH 13.8 % (11.5-14.5); WHITE BLOOD COUNT 10.6 X10'3 (4.5-11.0)
[2022-09-04 08:20] LABS: ALBUMIN 3.1 G/DL (3.4-5.0); ANION GAP 4 (8-16); BLOOD UREA NITROGEN 26 MG/DL (7-18); BUN/CREATININE RATIO 32.9 (5.4-32.0); CALCIUM 8.7 MG/DL (8.5-10.1); CHLORIDE 96 MMOL/L (99-107); CREATININE 0.79 MG/DL (0.60-1.10); GLUCOSE 116 MG/DL (70-104); POTASSIUM 5.2 MMOL/L (3.5-5.1); SODIUM 129 MMOL/L (135-145); TOTAL CARBON DIOXIDE 28.7 MMOL/L (24-32); eGFR > 90 ML/MIN
[2022-09-04] MEDS: aspirin 81mg tab.chew PO SCH (09:11)
[2022-09-04] MEDS: metoprolol tartrate 12.5mg (1/2 tablet) PO SCH (09:11)
[2022-09-04] MEDS: carBAMazepine 100mg chewable tablet PO SCH ×2 (09:12→19:39)
[2022-09-04] MEDS: apixaban 5mg tablet PO SCH ×2 (09:12→19:41)
[2022-09-04] MEDS: magnesium Cl slow-release 64mg tablet PO SCH ×2 (09:12→19:39)
[2022-09-04] MEDS: pantoprazole 40mg Tablet.DR PO SCH (09:13)
[2022-09-04] MEDS: sennosides/docusate sodium tablet PO SCH ×2 (09:13→19:39)
[2022-09-04] MEDS: tamsulosin 0.4mg capsule PO SCH ×2 (09:13→19:39)
[2022-09-04 11:00] VITALS: BP 154/86
[2022-09-04] MEDS: HYDROcodone/acetaminophen 10/325mg tab PO PRN ×2 (11:42→19:41)
[2022-09-04 15:00] VITALS: BP 112/57
--- NOTE | 2022-09-04 17:15 | NUR ---
Chest tube removed at 1400.
[2022-09-04 18:00] VITALS: BP 123/85
--- NOTE | 2022-09-04 18:33 | NUR ---
Problems reprioritized. Patient report given, questions answered & plan of care reviewed with GUY Anderson.
[2022-09-04] MEDS: metoprolol tartrate 25mg tablet PO SCH (19:38)
[2022-09-04] MEDS: atorvastatin 10mg tablet PO SCH (19:47)
[2022-09-04 22:09] VITALS: BP 136/86
--- NOTE | 2022-09-04 22:17 | NUR ---
Called left for AC Loomis. Patient with hx afib has been in SR lately... CABG 09/01, today post op day 3. Now afib controlled HR 80's to low 100's, all other VSS. PA instructed to call PCU back if needed.
[2022-09-05] VITALS (7 sets, daily range): BP systolic 135–170; BP diastolic 88–110
[2022-09-05] MEDS: ketorolac trometh. 30mg/ml inj. IV SCH ×2 (02:27→08:18)
--- NOTE | 2022-09-05 06:06 | NUR ---
Problems reprioritized. Patient report given, questions answered & plan of care reviewed with GUY Sam.
--- NOTE | 2022-09-05 06:42 | NUR ---
Patient in room PCU 3023. I have received report from GUY Anderson and had the opportunity to ask questions and assume patient care.
[2022-09-05 07:03] LABS: BASOPHILS # (AUTO) 0.1 X10'3 (0-0.2); BASOPHILS % (AUTO) 1.3 % (0-1); EOSINOPHILS % (AUTO) 0.3 % (0-6); HEMATOCRIT 28.6 % (42.0-52.0); HEMOGLOBIN 9.8 g/dl (14.0-17.9); LYMPHOCYTES % (AUTO) 10.5 % (21-51); MEAN CORPUSCULAR HEMOGLOBIN 32.1 PG (27.0-31.0); MEAN CORPUSCULAR HGB CONC 34.4 g/dL (33.0-36.5); MEAN CORPUSCULAR VOLUME 93.3 FL (78-98); MEAN PLATELET VOLUME 7.7 FL (7.4-10.4); MONOCYTES # (AUTO) 1.1 X10'3 (0-0.9); MONOCYTES % (AUTO) 11.4 % (2-12); NEUTROPHILS # (AUTO) 7.1 X10'3 (1.8-7.7); NEUTROPHILS % (AUTO) 76.5 % (42-75); PLATELET COUNT 168 X10'3 (140-440); RED BLOOD COUNT 3.07 X10'6 (4.70-6.10); RED CELL DISTRIBUTION WIDTH 13.7 % (11.5-14.5); WHITE BLOOD COUNT 9.3 X10'3 (4.5-11.0)
[2022-09-05 07:25] LABS: ALBUMIN 2.9 G/DL (3.4-5.0); ANION GAP 7 (8-16); BLOOD UREA NITROGEN 23 MG/DL (7-18); BUN/CREATININE RATIO 35.9 (5.4-32.0); CALCIUM 8.5 MG/DL (8.5-10.1); CHLORIDE 94 MMOL/L (99-107); CREATININE 0.64 MG/DL (0.60-1.10); GLUCOSE 124 MG/DL (70-104); POTASSIUM 4.7 MMOL/L (3.5-5.1); SODIUM 126 MMOL/L (135-145); TOTAL CARBON DIOXIDE 25.4 MMOL/L (24-32); eGFR > 90 ML/MIN
[2022-09-05] MEDS: ipratropium/albuterol 3ml nebule NEB SCH ×4 (07:25→19:17)
[2022-09-05] MEDS: pantoprazole 40mg Tablet.DR PO SCH (08:12)
[2022-09-05] MEDS: magnesium Cl slow-release 64mg tablet PO SCH ×2 (08:13→20:51)
[2022-09-05] MEDS: metoprolol tartrate 25mg tablet PO SCH ×2 (08:13→20:51)
[2022-09-05] MEDS: tamsulosin 0.4mg capsule PO SCH ×2 (08:13→20:51)
[2022-09-05] MEDS: sennosides/docusate sodium tablet PO SCH ×2 (08:13→20:52)
[2022-09-05] MEDS: aspirin 81mg tab.chew PO SCH (08:13)
[2022-09-05] MEDS: carBAMazepine 100mg chewable tablet PO SCH ×2 (08:14→20:52)
[2022-09-05] MEDS: apixaban 5mg tablet PO SCH ×2 (08:14→20:51)
[2022-09-05] MEDS: folic acid 1mg tablet PO SCH (08:14)
[2022-09-05] MEDS ORDERED: LORazepam 0.5 MG tablet PO PRN (11:00)
[2022-09-05] MEDS ORDERED: LORazepam 2 mg/ml vial IV PRN (11:00)
[2022-09-05] MEDS: furosemide 40mg tablet PO SCH (12:41)
--- NOTE | 2022-09-05 13:40 | NUR ---
PAGER ID: [phone] MESSAGE: Cecy [phone] RE: Brando Mcqueen room [id number] - patient requests Benadryl instead of Ativan
[2022-09-05] MEDS: diphenhydrAMINE 25mg capsule PO PRN ×2 (16:23→22:43)
--- NOTE | 2022-09-05 18:50 | NUR ---
Problems reprioritized. Patient report given, questions answered & plan of care reviewed with GUY Anderson.
[2022-09-05] MEDS: atorvastatin 10mg tablet PO SCH (20:52)
--- NOTE | 2022-09-05 23:44 | NUR ---
PAGER ID: [phone] MESSAGE: DR HARDIN CAN YOU PLEASE CALL RICKY OR HEIDI REGARDING [id number]. HAVING ANXIETY/SOB STATUS POST CABG REFUSING ATIVAN WANTING MORPHIN IF POSSIBLE? THANKS RICKY [phone]
[2022-09-05] MEDS ORDERED: morphine 2 MG/ML inj. syringe IV ONE (23:50)
[2022-09-06] MEDS: ipratropium/albuterol 3ml nebule NEB SCH ×2 (00:16→10:54)
[2022-09-06 02:00] VITALS: BP 155/86
[2022-09-06 06:59] LABS: BASOPHILS % (AUTO) 0.4 % (0-1); EOSINOPHILS % (AUTO) 0.3 % (0-6); HEMATOCRIT 29.8 % (42.0-52.0); HEMOGLOBIN 10.3 g/dl (14.0-17.9); LYMPHOCYTES % (AUTO) 12.2 % (21-51); MEAN CORPUSCULAR HEMOGLOBIN 31.9 PG (27.0-31.0); MEAN CORPUSCULAR HGB CONC 34.5 g/dL (33.0-36.5); MEAN CORPUSCULAR VOLUME 92.3 FL (78-98); MEAN PLATELET VOLUME 7.1 FL (7.4-10.4); MONOCYTES # (AUTO) 1.1 X10'3 (0-0.9); MONOCYTES % (AUTO) 13.3 % (2-12); NEUTROPHILS # (AUTO) 6.1 X10'3 (1.8-7.7); NEUTROPHILS % (AUTO) 73.8 % (42-75); PLATELET COUNT 246 X10'3 (140-440); RED BLOOD COUNT 3.23 X10'6 (4.70-6.10); RED CELL DISTRIBUTION WIDTH 13.4 % (11.5-14.5); WHITE BLOOD COUNT 8.3 X10'3 (4.5-11.0)
[2022-09-06 07:00] VITALS: BP 147/95
--- NOTE | 2022-09-06 07:03 | NUR ---
Problems reprioritized. Patient report given, questions answered & plan of care reviewed with GUY Ireland.
[2022-09-06] MEDS: ipratropium/albuterol 3ml nebule NEB PRN (07:17)
[2022-09-06 07:25] LABS: ANION GAP 7 (8-16); BLOOD UREA NITROGEN 13 MG/DL (7-18); CALCIUM 8.9 MG/DL (8.5-10.1); CHLORIDE 94 MMOL/L (99-107); CREATININE 0.59 MG/DL (0.60-1.10); GLUCOSE 114 MG/DL (70-104); POTASSIUM 4.1 MMOL/L (3.5-5.1); SODIUM 131 MMOL/L (135-145); TOTAL CARBON DIOXIDE 30.4 MMOL/L (24-32); eGFR > 90 ML/MIN
[2022-09-06] MEDS: apixaban 5mg tablet PO SCH (07:56)
[2022-09-06] MEDS: aspirin 81mg tab.chew PO SCH (07:56)
[2022-09-06] MEDS: furosemide 40mg tablet PO SCH (07:57)
[2022-09-06] MEDS: magnesium Cl slow-release 64mg tablet PO SCH (07:57)
[2022-09-06] MEDS: folic acid 1mg tablet PO SCH (07:57)
[2022-09-06] MEDS: carBAMazepine 100mg chewable tablet PO SCH (07:57)
[2022-09-06 07:59] VITALS: BP_SYST 147
[2022-09-06] MEDS: metoprolol tartrate 25mg tablet PO SCH (07:59)
[2022-09-06] MEDS: pantoprazole 40mg Tablet.DR PO SCH (07:59)
[2022-09-06] MEDS: tamsulosin 0.4mg capsule PO SCH (07:59)
[2022-09-06] MEDS: sennosides/docusate sodium tablet PO SCH (08:00)
[2022-09-06] MEDS ORDERED: mineral oil 133ml enema RC PRN (08:35)
[2022-09-06] MEDS ORDERED: bisacodyl 10mg suppository rectal RC PRN (08:35)
[2022-09-06] MEDS ORDERED: ASPI81TA53 PO (10:46)
[2022-09-06] MEDS ORDERED: HYDR-3972 PO (10:46)
--- NOTE | 2022-09-06 11:24 | NUR ---
Called Jan Calhoun [phone] with US results of brachial arteries BLE.
--- NOTE | 2022-09-06 12:29 | NUR ---
Pt declined afternoon VS
--- NOTE | 2022-09-06 13:39 | NUR ---
Wale;led Daughter per pt request [phone]. Stated no one communicated hospital bed out of pocket to her. Transferred her to [facility]
--- NOTE | 2022-09-06 14:12 | NUR ---
Pt insisted RN call Jan PENALOZA to have stitches d/c . Called Jan and verified stitches to be removed at FU appt with Dr Arteaga
--- NOTE | 2022-09-06 15:04 | NUR ---
Explained d/c instructions to pt, answered all questions satisfactorily, d/c tele and IV x2 (tips intact), explained no rigorous scrubbing of surgical incision & s/sx infection, instructed pt to FU with all outlined physiicians. Pt verbalized understanding and endorses has all belongings. Pt escorted to awaiting family vehicle
== END 2022-09-06 14:52 | disposition home health service (06) | DRG 233 ==
LOC: ER 15:51 → ED HOLD 21:31 → EDBEDREQ 08-25 10:02 → PCU 3S 08-25 10:45 → OBSVTOIN 08-25 14:00 → CICU 2S 09-01 16:53 → PCU 3S 09-03 20:20
PROVIDERS: ADMIT Family Medicine; ATTEND Internal Medicine
PROC: 4A023N7 Measurement of Cardiac Sampling and Pressure, Left Heart, Percutaneous Approach (ICD-10-PCS; 2022-08-25)
PROC: B2111ZZ Fluoroscopy of Multiple Coronary Arteries using Low Osmolar Contrast (ICD-10-PCS; 2022-08-25)
PROC: B2151ZZ Fluoroscopy of Left Heart using Low Osmolar Contrast (ICD-10-PCS; 2022-08-25)
PROC: 5A09357 Assistance with Respiratory Ventilation, Less than 24 Consecutive Hours, Continuous Positive Airway Pressure (ICD-10-PCS; 2022-08-26)
PROC: 5A09357 Assistance with Respiratory Ventilation, Less than 24 Consecutive Hours, Continuous Positive Airway Pressure (ICD-10-PCS; 2022-08-28)
PROC: 021109W Bypass Coronary Artery, Two Arteries from Aorta with Autologous Venous Tissue, Open Approach (ICD-10-PCS; 2022-09-01)
PROC: 06BP4ZZ Excision of Right Saphenous Vein, Percutaneous Endoscopic Approach (ICD-10-PCS; 2022-09-01)
PROC: 5A1221Z Performance of Cardiac Output, Continuous (ICD-10-PCS; 2022-09-01)
PROC: 02L70CK Occlusion of Left Atrial Appendage with Extraluminal Device, Open Approach (ICD-10-PCS; 2022-09-01)
PROC: B24BZZ4 Ultrasonography of Heart with Aorta, Transesophageal (ICD-10-PCS; 2022-09-01)
PROC: 5A2204Z Restoration of Cardiac Rhythm, Single (ICD-10-PCS; 2022-09-01)
PROC: 02100Z9 Bypass Coronary Artery, One Artery from Left Internal Mammary, Open Approach (ICD-10-PCS; principal; 2022-09-01 12:52)
PROC: 5A09357 Assistance with Respiratory Ventilation, Less than 24 Consecutive Hours, Continuous Positive Airway Pressure (ICD-10-PCS; 2022-09-03)
PROC: 5A09357 Assistance with Respiratory Ventilation, Less than 24 Consecutive Hours, Continuous Positive Airway Pressure (ICD-10-PCS; 2022-09-05)
PROC: 5A09357 Assistance with Respiratory Ventilation, Less than 24 Consecutive Hours, Continuous Positive Airway Pressure (ICD-10-PCS; 2022-09-06)
DX: I25.110 Atherosclerotic heart disease of native coronary artery with unstable angina pectoris (principal); I49.01 Ventricular fibrillation; I63.9 Cerebral infarction, unspecified; J96.00 Acute respiratory failure, unspecified whether with hypoxia or hypercapnia; I50.22 Chronic systolic (congestive) heart failure; F10.239 Alcohol dependence with withdrawal, unspecified; I48.92 Unspecified atrial flutter; J93.82 Other air leak; I48.19 Other persistent atrial fibrillation; E87.1 Hypo-osmolality and hyponatremia; J44.1 Chronic obstructive pulmonary disease with (acute) exacerbation; E78.5 Hyperlipidemia, unspecified; E11.51 Type 2 diabetes mellitus with diabetic peripheral angiopathy without gangrene; G40.909 Epilepsy, unspecified, not intractable, without status epilepticus; G47.00 Insomnia, unspecified; F12.90 Cannabis use, unspecified, uncomplicated; G47.30 Sleep apnea, unspecified; F41.1 Generalized anxiety disorder; H91.93 Unspecified hearing loss, bilateral; R14.0 Abdominal distension (gaseous); I11.0 Hypertensive heart disease with heart failure; I70.0 Atherosclerosis of aorta; K59.00 Constipation, unspecified; I25.2 Old myocardial infarction; Z79.01 Long term (current) use of anticoagulants; Z86.73 Personal history of transient ischemic attack (TIA), and cerebral infarction without residual deficits; Z88.8 Allergy status to other drugs, medicaments and biological substances; Z79.899 Other long term (current) drug therapy; Z87.891 Personal history of nicotine dependence
CPT/HCPCS: 0232T; 93308; 93312; 93325; 93458; 96374; 99285; 36415; 36600; 70450; 70544; 70547; 70551; 71045; 71046; 71250; 74018; 74176; 80048; 80051; 80053; 82330; 82435; 82803; 82947; 82948; 83036; 83735; 83880; 84100; 84132; 84295; 84478; 84484; 85018; 85025; 85347; 85384; 85610; 85730; 86885; 86900; 86901; 86920; 87081; 93005; 93880; 93922; 93925; 93970; 94002; 94003; 94010; 94640; 94660; 94664; 94668; 94760; 97110; 97116; 97161; 97530; 99152; 99153; A4333; A4615; A4618; A4620; A6222; A6258; A6402; A6449; A7000; A7015; A7048; C1751; C1769; C1894; G0378; J0171; J0282; J0690; J1644; J1650; J1815; J1885; J1940; J2060; J2250; J2260; J2270; J2440; J2704; J2720; J2930; J3010; J3370; J3475; J3480; J3490; J7030; J7040; J7050; J7120; P9045; P9047; Q0163; Q9967; S0020